=== PATIENT | female | born 1985 | race Caucasian/White ===

== ENCOUNTER 2023-08-16 17:06 | Emergency (ER) | payer MEDICAID, SELFPAY ==
[2023-08-16 17:15] VITALS: BP 127/88; PULSE 73; RESP 18; TEMP 36.9; O2SAT 96; BMI 25.4
--- NOTE | 2023-08-16 17:18 | ED.GENADULT ---
HPI - General Adult General Chief complaint: General Medical Stated complaint: missed methadone dose today Time Seen by Provider: 08/16/23 20:26 Source: patient Mode of arrival: ambulatory Limitations: no limitations History of Present Illness ED Provider: Dr. Khanh Martinez HPI narrative: 37-year-old female with a history of heroin use disorder who is on methadone who presents emergency department for evaluation of withdrawal symptoms. Patient states she does get methadone 65 mg daily but got to her clinic too late today to receive the methadone dose. She states she is currently withdrawing. She states that she is having muscle pain, feeling very anxious, and is unable to sleep. Patient denied nausea, vomiting or diarrhea. Patient states that she was using injection heroin but can not recall when she last used. She denied fever, chills, chest pain or shortness of breath. She states she has currently in the [facility] substance use treatment center. She states that someone from the center dropped her off in the emergency department today to get treatment. Related Data Allergies Allergy/AdvReac Type Severity Reaction Status Date / Time No Known Allergies Allergy Verified 08/16/23 17:17 Review of Systems Review of Systems: Yes all other systems are reviewed and are negative [facility] Social History Social History Unable to assess alcohol history related to: Unknown Smoked in Last 30 Days: No Use of substances other than those prescribed or required for medical reasons: Unknown Advance Directives: No Advance Directives Information Provided: No Do you have a plan to hurt others: No Plan Physical Exam ED Vital Signs: Vital Signs - 24 hr 08/16/23 17:15 08/16/23 21:00 Temperature 98.4 F 98.1 F Pulse Rate 73 70 Respiratory Rate 18 16 Blood Pressure 127/88 134/96 H Pulse Oximetry 96 98 Oxygen Delivery Method Room Air Room Air BMI result Body Mass Index 25.4 Vital signs were normal Exam: General: Awake, alert, tearful, appears anxious Head: Normocephalic, atraumatic EENT: PERRL, Lids normal, sclera normal, conjunctiva normal, nose normal , ears normal, throat without erythema or exudates Neck: Supple, no adenopathy Lung: breath sounds symmetric, no wheezing, rales or rhonchi Chest: symmetric movement, nontender Heart: regular rate and rhythm, normal S1, S2 no murmurs or rubs Abdomen: soft, non-tender, nondistended, normal bowel sounds Back: no vertebral tenderness, no CVAT Extremities: no deformities, moves all extremities symmetrically Neuro: Awake, alert, oriented, normal speech, cranial nerves intact, moves all extremities symmetrically Psych: Pleasant, cooperative Course Course Course Narrative: This is a Rapid Medical Examination (RME) performed by Helena Xiao PA-C in triage. Full HPI, ROS, assessment and treatment plan per primary provider in the Main ED. 37 yo female here requesting methadone dose. She is typically dosed at [facility] in [place]. Her typical dose is 65 mg with last dose being yesterday. patient visibly anxious and restless in triage. Plan: dose confirmation and administration Medications Administered Discontinued Medications Generic Name Dose Route Start Last Admin Trade Name Nydia PRN Reason Stop Dose Admin Clonidine HCl 0.1 mg 08/16/23 20:34 08/16/23 20:57 Clonidine Hcl 0.1 Mg Tablet PO 08/16/23 20:35 0.1 mg ONCE ONE Administration Protocol Hydroxyzine HCl 25 mg 08/16/23 20:34 08/16/23 20:57 Hydroxyzine Hcl 25 Mg Tablet PO 08/16/23 20:35 25 mg ONCE ONE Administration Methadone HCl 40 mg 08/16/23 20:34 08/16/23 20:57 Methadone Hcl 20 Mg/2 Ml Oral.Conc PO 08/16/23 20:35 40 mg ONCE ONE Administration Medical Decision Making Medical Decision Making [facility] Narrative: 37-year-old female with history of heroin use disorder currently in a methadone program and at a substance use treatment program who missed her dose of methadone today. Patient feels like she is withdrawing from opiates. Patient states that she takes methadone 65 mg daily but we were unable to confirm this dose. Vital signs were normal. Physical examination was unremarkable Differential diagnosis: ?Includes but is not limited to opiate withdrawal, anxiety Course: 20:42 The patient's has a history of opiate use disorder and is in a methadone program but states she missed her methadone dose today. Patient appears to be anxious and was tearful but otherwise exam was unremarkable. We are unable to confirm her dose however I am concerned that she may be with drawing from opiates and is a high-risk for using opiates if we do not treat her withdrawal. Patient was given methadone 40 mg orally, clonidine 0.1 mg orally and hydroxyzine 25 mg orally. Patient was discharged and advised to follow-up with her methadone clinic tomorrow. Discharge Plan Discharge Clinical Impression: Medical home Patient Disposition: Home, Self-Care Interventions: ED Discharge Assessment Last Done: 08/16/23 21:00 Discharge Date/Time: 08/16/23 21:00 Print Language: Croatian
--- NOTE | 2023-08-16 17:27 | PC.NURSE ---
attempted to call [facility] to confirm methadone dose, state that they do not have record of her getting dosed at that facility.
[2023-08-16] MEDS: hydrOXYzine HCL 25 MG TABLET PO (20:57)
[2023-08-16] MEDS: methADONE HCl 20 MG/2 ML ORAL.CONC 40 MG PO (20:57)
[2023-08-16] MEDS: cloNIDine HCL 0.1 MG TABLET PO (20:57)
[2023-08-16 21:00] VITALS: BP 134/96; PULSE 70; RESP 16; TEMP 36.7; O2SAT 98
== END 2023-08-16 21:00 | disposition home or self-care (01) ==
PROVIDERS: Emergency Provider Emergency Medicine Emergency Medical Services
DX: F11.20 Opioid dependence, uncomplicated (principal); F41.9 Anxiety disorder, unspecified
CPT/HCPCS: 99283; 99284

== ENCOUNTER 2024-02-14 16:57 | Inpatient (IN) | payer OTHER, SELFPAY ==
[2024-02-14 17:21] VITALS: BP 121/78; PULSE 68; RESP 18; TEMP 36.8; O2SAT 94
[2024-02-14 17:32] VITALS: BMI 17.6
--- NOTE | 2024-02-14 17:53 | PC.NURSE ---
Bronwyn declined to sign releases of information at this time
[2024-02-14 18:27] LABS: Alanine Aminotransferase 14 U/L (0-31); Albumin Level 4.1 g/dL (3.5-5.0); Anion Gap 12 (12-20); Aspartate Amino Transferase 26 U/L (5-31); Blood Urea Nitrogen 13 mg/dL (9-16); Calcium 9.1 mg/dL (8.4-10.2); Carbon Dioxide 22 mmol/L (22-29); Chloride 111 mmol/L (96-108); Creatinine Clr Calc Pharmacy 69.9; Estimated Glomerular Filt Rate > 60; Glucose Random 84 mg/dL (60-115); Potassium 4.2 mmol/L (3.3-5.1); Sodium 141 mmol/L (135-145); Total Protein 7.2 g/dL (6.5-8.0)
[2024-02-14 18:35] LABS: Alkaline Phosphatase 52 U/L (39-117); Bilirubin Total 0.6 mg/dL (0.0-1.0)
--- NOTE | 2024-02-14 18:41 | PC.ADMIT ---
Bronwyn was admitted to from [facility] via ambulance on a 12B at 1718 for treatment of unspecified schizophrenia. Much of admission done from medical record due to unwillingness to participate in admission. Prior to admission, she was living at [facility] in which EMS was called due to her experiencing AH. Upon arrival to , she denies SI/HI/AVH but is pressured speech and self dialoguing when not speaking to RN. She presents as disheveled and anxious. She denies smoking, drinking or use of substances. Tox screen not done at prior facility, Nikhil Trevino MD aware. EKG provided by prior facility, no significant findings. Skin check completed and unremarkable. She is A&O x4. She reports not eating in a few days and is requesting Ensures stating she has recently lost weight due to depression. She denies complaints or issues at this time. Placed on 15 minute checks for safety.
--- NOTE | 2024-02-14 20:27 | P.CONHOSP_ITS ---
History of Present Illness Data of Consult Service Date: 02/14/24 Primary Care Provider: Unknown Physician [facility] Reason for consult: Admission H&P Pt is a 38-year-old female with a PMH significant for hepatitis C, polysubstance use disorder with IVDU, anxiety, and depression who was admitted to [facility] with medical consult for admission H&P. Pt appears restless and anxious during interview and exam, as well as somatically preoccupied. Pt reports was partially treated with hepatitis-C a few years ago though did not complete full treatment. Has history of IVDU with last injection a few months ago. Pt worries that she might have HIV as well as possible ear infections. Pt denies any acute aural complaints, though notes both her son and her aunt have tubes in their ears and she wonders if she might as well need them. States it sometimes feels like her ears are draining, though unclear if there is any actual drainage. Denies current ear pain or loss in hearing. Pt also concerned about potential meningitis. States has a friend who had a spine infection and she reports has injected in her neck in the past, though for many months. No fever, neck pain, or known confusion. Denies chest pain/pressure, palpitations. No shortness a breath or difficulty breathing. Denies cough. Review of Systems 2 Review of Systems: Negative except for that which is stated in the [facility] Medical History (Updated 02/14/24 @ 20:36 by MEAGAN Marin) IVDU (intravenous drug user) Polysubstance use disorder Hepatitis C Social History Household Members: None Housing: Apartment Housing Other:: Sober Living Do you presently have visiting nurse or other home services: No Unable to assess alcohol history related to: Unknown Patient Tobacco Use Status: Never used Tobacco Smoked in Last 30 Days: No e-Cigarette/Vaping Use: Never Used Patient Interested in Nicotine Replacement: No Patient Given Instructions on How to Stop Smoking: No Second Hand Smoke Exposure: No Use of substances other than those prescribed or required for medical reasons: Refusing to respond Substance Use Type: Unknown Last Used Substance: Unknown Any prior treatment program specific to substance use: Yes Advance Directives: No Advance Directives Information Provided: No Recently lost weight without trying: Yes How much weight loss: 2-13 pounds Eating poorly because of decreased appetite: Yes Nutrition screen score: 4 Nutrition Risks: No Nutritional Risk Patient : No : No Poor oral hygiene: No Meds Allergies Allergy/AdvReac Type Severity Reaction Status Date / Time No Known Allergies Allergy Verified 08/16/23 17:17 Active Medications: Current Medications Acetaminophen (Acetaminophen 325 Mg Tablet) 650 mg PO Q6H PRN PRN Reason: Headache/Pain Mild Scale (1-3) Al Hydroxide/Mg Hydroxide (Magnesium Hydrox/Alum Hydrox 30 Ml Oral.Susp) 30 ml PO Q6H PRN PRN Reason: Heartburn/Nausea Aripiprazole (Aripiprazole 2 Mg Tablet) 2 mg PO DAILY JHONY Hydroxyzine HCl (Hydroxyzine Hcl 25 Mg Tablet) 25 mg PO Q6H PRN PRN Reason: Anxiety Hydroxyzine HCl (Hydroxyzine Hcl 50 Mg Tablet) 50 mg PO Q6H PRN PRN Reason: Anxiety Lorazepam (Lorazepam 1 Mg Tablet) 1 mg PO Q8H PRN PRN Reason: Anxiety Magnesium Hydroxide (Milk Of Magnesia 30 Ml Oral.Susp) 30 ml PO DAILY PRN PRN Reason: Constipation Melatonin (Melatonin 3 Mg Tablet) 6 mg PO BEDTIME JHONY Methadone HCl (Methadone Hcl 20 Mg/2 Ml Oral.Conc) 70 mg PO DAILY JHONY Mirtazapine (Mirtazapine 30 Mg Tablet) 30 mg PO BEDTIME JHONY Non-Formulary Medication (Lumateperone [Caplyta]) 42 mg PO DAILY JHONY Oxcarbazepine (Oxcarbazepine 300 Mg Tablet) 300 mg PO BID JHONY Quetiapine Fumarate (Quetiapine Fumarate 50 Mg Tablet) 50 mg PO Q4H PRN PRN Reason: Anxiety Sertraline HCl (Sertraline Hcl 50 Mg Tablet) 50 mg PO DAILY JHONY Trazodone HCl (Trazodone Hcl 50 Mg Tablet) 50 mg PO BEDTIME MRX1 PRN PRN Reason: Insomnia Home Medications ?Medication ?Instructions ?Recorded ?Confirmed ?Last Taken ?Type aripiprazole 2 mg tablet 2 mg PO DAILY 02/14/24 02/14/24 Unknown History bupropion HCl 150 mg 24 hr tablet, 150 mg PO DAILY 02/14/24 02/14/24 Unknown History extended release (Wellbutrin XL) hydroxyzine HCl 50 mg tablet 50 mg PO Q6H PRN Anxiety 02/14/24 02/14/24 Unknown History lorazepam 1 mg tablet (Ativan) 1 mg PO Q8H PRN Anxiety 02/14/24 02/14/24 Unknown History lumateperone 42 mg capsule 42 mg PO DAILY 02/14/24 02/14/24 Unknown History (Caplyta) melatonin 5 mg tablet 6 mg PO BEDTIME 02/14/24 02/14/24 Unknown History methadone 70 mg PO DAILY 02/14/24 02/14/24 02/14/24 13:01 History mirtazapine 30 mg tablet 30 mg PO BEDTIME 02/14/24 02/14/24 Unknown History oxcarbazepine 300 mg tablet 300 mg PO BID 02/14/24 02/14/24 Unknown History quetiapine 50 mg tablet 50 mg PO Q4H PRN Anxiety 02/14/24 02/14/24 Unknown History sertraline 50 mg tablet 50 mg PO DAILY 02/14/24 02/14/24 Unknown History trazodone 50 mg tablet 50 mg PO BEDTIME PRN Insomnia 02/14/24 02/14/24 Unknown History Physical Exam 2 Vital Signs and Narrative: Vital Signs: Last Vital Signs Temp 98.2 F 02/14/24 17:21 Pulse 68 02/14/24 17:21 Resp 18 02/14/24 17:21 BP 121/78 02/14/24 17:21 Pulse Ox 94 02/14/24 17:21 O2 Del Method Room Air 02/14/24 17:21 BMI result Body Mass Index 17.6 General: AOx3, no acute distress ENT: External ear canals non erythematous and without discharge discharge, with scant amount of cerumen bilaterally. TMs bilaterally pearly goodrich, with good light reflex and landmarks visible Resp: CTA bilaterally CVS: S1, S2, RRR GI: +BS, NT, no distention Skin: Warm, dry Neuro: Cranial nerves II-XII grossly intact bilaterally. Motor grossly intact bilaterally. No meningeal signs noted Extremities: No edema Psych: Restless, anxious Results Labs 02/14/24 17:49 Labs: Laboratory Results - last 24 hr 02/14/24 17:49 Anion Gap 12 Estim Creat Clear Calc 69.9 Estimated GFR > 60 Random Glucose 84 Calcium 9.1 Total Bilirubin 0.6 AST 26 ALT 14 Alkaline Phosphatase 52 Total Protein 7.2 Albumin 4.1 Assessment and Plan (1) Medical clearance for psychiatric admission: Status: Acute Plan Pt is a 38-year-old female with a PMH significant for hepatitis C, polysubstance use disorder with IVDU, anxiety, and depression who was admitted to [facility] with medical consult for admission H&P. Mood disorder Plan as per psychiatry Concern for bilateral ear infection Currently no complaints or symptoms, though reports sometimes has ear drainage and family hx of Eustachian tube dysfunction requiring surgical intervention No sign of active otitis externa or media bilaterally No indication for treatment or further workup at this time Question of HIV Pt worried she has contracted HIV Last tested over a year ago Will check HIV status Hepatitis C Reports partially treated a few years ago Check viral load Thank you for allowing us to participate in the care of this patient. Signing off at this time. Please re-consult if any acute complaints or issues arise.
[2024-02-14] MEDS: Melatonin 3 MG TABLET 6 MG PO (20:39)
[2024-02-14] MEDS: OXcarbazepine 300 MG TABLET PO (20:39)
[2024-02-14] MEDS: Mirtazapine 30 MG TABLET PO (20:39)
--- NOTE | 2024-02-14 23:38 | PC.NURSE ---
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 Ms Banuelos's phone number is [phone]. There are no releases signed by this patient upon her admission, so this check writer salesperson did not return the call. This message will be passed on via the report packet to day shift.
[2024-02-15 07:59] VITALS: BP 114/73; PULSE 73; RESP 16; TEMP 36.8; O2SAT 100
[2024-02-15 08:24] LABS: Cholesterol 179 mg/dL (<200); HDL Cholesterol 62 mg/dL (>40); LDL Cholesterol Calculated 98 mg/dL (<100); Triglycerides 96 mg/dL (<150)
--- NOTE | 2024-02-15 08:33 | P.HPPS_ITS ---
[facility] Date of Service: 02/15/24 Chief Complaint: Psychosis Sources of Information: patient interviewed and chart reviewed HPI Subjective Notes: Conditional Voluntary Narrative: As per admission RN note 02/14/24: admitted to from [facility] via ambulance on a 12B at 1718 for treatment of unspecified schizophrenia. Much of admission done from medical record due to unwillingness to participate in admission. Prior to admission, she was living at [facility] in which EMS was called due to her experiencing AH. Upon arrival to , she denies SI/HI/AVH but is pressured speech and self dialoguing when not speaking to RN. She presents as disheveled and anxious. She denies smoking, drinking or use of substances. Tox screen not done at prior facility, Nikhil Trevino MD aware. EKG provided by prior facility, no significant findings. Skin check completed and unremarkable. She is A&O x4. She reports not eating in a few days and is requesting Ensures stating she has recently lost weight due to depression. She denies complaints or issues at this time. Placed on 15 minute checks for safety Today: patient does present as disorganized in thought form and tangential and guarded. Initially appeared to endorse auditory hallucinations, but later recanted this. States that she needs medications to help her feel more calm. Making statements that she might have an ear infection because her son had tubes put in his ear as did her aunt and she also had a fractured nose in the past. Reported somebody at her program called 911 and she is frustrated regarding this and wants discharge. Educated on Section 12 the Nguyen warning. Has been at the end our program for 1 month. Prior to that was staying at the [facility]. Reports having an apartment in [facility]. Stressors include being laid off from her job at [employer] 1 year ago. Is a poor historian regarding psychiatric treatment and current medication regimen. Reports not having a psychiatrist within the last year at least. Current regimen from the [facility] program. Cannot remember past psychiatric medication trials. Regarding substance use, reports methadone 70 mg has been helpful and has not used heroin in over 1 year. Has not drank in over a couple of years. Reports feeling safe here. Would like to return to her program at [facility] as that is not possible that her apartment in [facility]. Past Psychiatric History: Very poor historian. Does not have medications ordered prescriber in a number of years. Reports current regiment is through provider at [facility]. Last inpatient episode was a few years ago which was in the context of cutting self. Has a history of overdosing and cutting self, but last time was a few years ago. Reports diagnosis of bipolar disorder and describes episodes of at least hypomania. Unclear correlation with substance use. Currently on methadone maintenance 70 mg and finds this very helpful. Medical Evaluation Reviewed: Hospitalist Rimma Pending [facility] Medical History (Updated 02/15/24 @ 14:33 by Nikhil Trevino MD) IVDU (intravenous drug user) Polysubstance use disorder Hepatitis C Social History: reports having an apartment in [facility]. currently at [facility] and our program for the last 1 month. Laid off from job at [employer] 1 year ago. 5-year-old son currently with father and they are . 7-year-old daughter with aunt in [place] for the last couple of years. Denied any active legal issues. Substance History: Opioid and alcohol dependence. On methadone maintenance 70 mg and has not used any heroin in over 1 year and alcohol in a couple of years. Diagnostics Vital Signs (24Hr): Vital Signs - 24 hr 02/14/24 17:21 02/15/24 07:59 Temperature 98.2 F 98.2 F Pulse Rate 68 73 Respiratory Rate 18 16 Blood Pressure 121/78 114/73 Pulse Oximetry 94 100 Oxygen Delivery Method Room Air Room Air BMI result Body Mass Index 17.6 Labs 02/14/24 17:49 Labs: Laboratory Results - last 48 hr 02/14/24 02/15/24 17:49 07:45 Sodium 141 Potassium 4.2 Chloride 111 H Carbon Dioxide 22 Anion Gap 12 BUN 13 Creatinine 0.71 Estim Creat Clear Calc 69.9 Estimated GFR > 60 Random Glucose 84 Calcium 9.1 Total Bilirubin 0.6 AST 26 ALT 14 Alkaline Phosphatase 52 Total Protein 7.2 Albumin 4.1 Triglycerides 96 Cholesterol 179 LDL Cholesterol, Calc 98 HDL Cholesterol 62 Meds/Allergies Meds Home Medications ?Medication ?Instructions ?Recorded ?Confirmed ?Type aripiprazole 2 mg tablet 2 mg PO DAILY 02/14/24 02/14/24 History bupropion HCl 150 mg 24 hr tablet, 150 mg PO DAILY 02/14/24 02/14/24 History extended release (Wellbutrin XL) hydroxyzine HCl 50 mg tablet 50 mg PO Q6H PRN Anxiety 02/14/24 02/14/24 History lorazepam 1 mg tablet (Ativan) 1 mg PO Q8H PRN Anxiety 02/14/24 02/14/24 History lumateperone 42 mg capsule 42 mg PO DAILY 02/14/24 02/14/24 History (Caplyta) melatonin 5 mg tablet 6 mg PO BEDTIME 02/14/24 02/14/24 History methadone 70 mg PO DAILY 02/14/24 02/14/24 History mirtazapine 30 mg tablet 30 mg PO BEDTIME 02/14/24 02/14/24 History oxcarbazepine 300 mg tablet 300 mg PO BID 02/14/24 02/14/24 History quetiapine 50 mg tablet 50 mg PO Q4H PRN Anxiety 02/14/24 02/14/24 History sertraline 50 mg tablet 50 mg PO DAILY 02/14/24 02/14/24 History trazodone 50 mg tablet 50 mg PO BEDTIME PRN Insomnia 02/14/24 02/14/24 History Allergies Allergies Allergy/AdvReac Type Severity Reaction Status Date / Time No Known Allergies Allergy Verified 08/16/23 17:17 Assessment & Plan Assessment & Plan (1) Bipolar disorder: Status: Acute Code(s): F31.9 - Bipolar disorder, unspecified (2) Polysubstance use disorder: Status: Acute Code(s): F19.90 - Other psychoactive substance use, unspecified, uncomplicated Plan 38-year-old female with history of bipolar disorder, currently residing at [facility] for the last 1 month, direct admission from [facility] in the context program staff concern around auditory hallucinations. Patient does present with thought disorder and may be internally preoccupied. Is guarded. Very poor historian around past treatment and current regimen, which is based off medication reconciliation from [facility]. Overall currently unable to care for self. Admitted on a Section 12 B. Overall will not make any med changes, see how patient settles into the milieu and make any adjustments if needed. Otherwise will need to liaise with community-based program. Patient educated on: medication risk/benefits and therapeutic strategies Informed Consent: understands Reason for continued inpatient stay Substantial Risk for: inability to function Statement Statement: I have reviewed the history and physical and performed a pertinent examination on my patient. No changes have occurred unless specified. If the History and Physical was not performed prior to admission, the Hospitalist's service will be consulted for completing the admission physical. Time Spent With Patient Time: Total time managing care of this patient today ____ minutes.
[2024-02-15] MEDS: Sertraline HCL 50 MG TABLET PO (09:01)
[2024-02-15] MEDS: OXcarbazepine 300 MG TABLET PO ×2 (09:01→20:02)
[2024-02-15] MEDS: ARIPiprazole 2 MG TABLET PO (09:01)
[2024-02-15] MEDS: methADONE HCl 20 MG/2 ML ORAL.CONC 70 MG PO (09:08)
[2024-02-15 15:07] LABS: Amphetamine Screen Urine Not Detected (Not Detect); Barbiturates, Urine Not Detected (Not Detect); Benzodiazepines Screen Urine Not Detected (Not Detect); Buprenorphine Scr Not Detected (Not Detect); Cannabinoid Screen Urine Not Detected (Not Detect); Cocaine Screen Urine Not Detected (Not Detect); Fentanyl, urine Not Detected (Not Detect); Methadone Screen, Urine Positive (Not Detect); Opiate Screen Urine Not Detected (Not Detect); Oxycodone Screen Urine Not Detected (Not Detect); Phencyclidine Screen Urine Not Detected (Not Detect)
[2024-02-15] MEDS: LORazepam 1 MG TABLET PO (15:45)
[2024-02-15] MEDS: hydrOXYzine HCL 50 MG TABLET PO (15:45)
[2024-02-15 20:00] VITALS: BP 100/64; PULSE 98; RESP 16; TEMP 37.6; O2SAT 97
[2024-02-15] MEDS: traZODone HCL 50 MG TABLET PO (20:03)
[2024-02-15] MEDS: QUEtiapine Fumarate 50 MG TABLET PO (20:03)
[2024-02-15] MEDS: Mirtazapine 30 MG TABLET PO (20:03)
[2024-02-15] MEDS: Melatonin 3 MG TABLET 6 MG PO (20:03)
[2024-02-15] MEDS: Acetaminophen 325 MG TABLET 650 MG PO (20:03)
[2024-02-16] MEDS: LORazepam 1 MG TABLET PO ×2 (00:12→20:59)
[2024-02-16] MEDS: hydrOXYzine HCL 25 MG TABLET PO (00:12)
[2024-02-16 07:43] LABS: HBS Num1 72.56 mIU/mL (0-7.99); HBc Num1 0.16 S/CO (0.00-0.79); HBsAGNum1 0.33 S/CO (0.00-0.99); HIV AB/AG Nonreactive (Nonreactive); HIV Num 1 0.07 S/CO (0.00-0.99); Hepatitis A Antibody IgM 0.21 Index (0-0.79); Hepatitis B Core Antibody Nonreactive (Nonreactive); Hepatitis B Surface Antigen Negative (Negative); ~HepC Num1 16.45 S/CO (0.00-0.79); ~Hepatitis A Antibody IgM Nonreactive (Nonreactive); ~Hepatitis B Surface Antibody REACTIVE (Nonreactive); ~Hepatitis C Antibody Reactive (Nonreactive)
[2024-02-16 07:49] VITALS: BP 106/59; PULSE 75; TEMP 36.8; O2SAT 95
[2024-02-16] MEDS: methADONE HCl 20 MG/2 ML ORAL.CONC 70 MG PO (08:11)
[2024-02-16] MEDS: OXcarbazepine 300 MG TABLET PO ×2 (09:48→20:52)
[2024-02-16] MEDS: ARIPiprazole 2 MG TABLET PO (09:48)
[2024-02-16] MEDS: Sertraline HCL 50 MG TABLET PO (09:48)
--- NOTE | 2024-02-16 11:29 | MHC.CLN ---
NUTRITION CONSULT PATIENT WITH BMI=17.6, UNDERWEIGHT. REVIEW OF EMR WITH PATIENT REPORTING RECENT POOR INTAKE, WEIGHT LOSS AND WOULD LIKE ENSURE SUPPLEMENT. ADDING ENSURE TID TO PROMOTE NUTRITIONAL INTAKE. SUPPLEMENT PROVIDES 1050 KCALS, 60 G PROTEIN.
--- NOTE | 2024-02-16 15:28 | P.PNPSI_ITS ---
Subjective Subjective Date of Service: 02/16/24 Reason For Visit: Psychosis Subjective Notes: Section 12B Interim History: Keeping to self. guarded. patient reports feeling okay today; pt stated, everything stressed me out so I can to the hospital. I want to go back to [facility] . per nursing, slept 9 hours last night. denies SI/HI/VH/AH. 12b up on 02/18/24. Medication Compliance: Yes Side effects from medications: No Attending Groups: No Review of Systems Constitutional: Reports as per HPI Eyes: Reports as per HPI Reports as per HPI Cardiovascular: Reports as per HPI Respiratory: Reports as per HPI Gastrointestinal: Reports as per HPI Genitourinary: Reports as per HPI Musculoskeletal: Reports as per HPI Skin/Breast: Reports as per HPI Reports as per HPI Psychiatric: Reports as per HPI Endocrine: Reports as per HPI Hematologic/Lymphatic: Reports as per HPI Allergic/Immunologic: Reports as per HPI Mental Status Exam Mental Status Exam Narrative: Pt is alert and oriented; behavior is guarded; dressed in casual attire; mood is described as okay ; eye contact appropriate; Speech is normal rate, volume and not pressured; thought process is organized and goal directed; Thought content is on tx; denies SI/HI/VH/AH. Diagnostics Vital Signs (24Hr): Vital Signs - 24 hr 02/15/24 20:00 02/16/24 07:49 Temperature 99.7 F 98.3 F Pulse Rate 98 75 Respiratory Rate 16 Blood Pressure 100/64 106/59 L Pulse Oximetry 97 95 Oxygen Delivery Method Room Air Room Air BMI result Body Mass Index 17.6 Labs 02/14/24 17:49 Labs: Laboratory Results - last 48 hr 02/14/24 02/15/24 02/15/24 17:49 07:45 14:20 Sodium 141 Potassium 4.2 Chloride 111 H Carbon Dioxide 22 Anion Gap 12 BUN 13 Creatinine 0.71 Estim Creat Clear Calc 69.9 Estimated GFR > 60 Random Glucose 84 Calcium 9.1 Total Bilirubin 0.6 AST 26 ALT 14 Alkaline Phosphatase 52 Total Protein 7.2 Albumin 4.1 Triglycerides 96 Cholesterol 179 LDL Cholesterol, Calc 98 HDL Cholesterol 62 Urine Opiates Screen Not Detected Ur Buprenorphine Scrn Not Detected Ur Oxycodone Screen Not Detected Urine Methadone Screen Positive H Urine Fentanyl Screen Not Detected Ur Barbiturates Screen Not Detected Ur Phencyclidine Scrn Not Detected Ur Amphetamines Screen Not Detected U Benzodiazepines Scrn Not Detected Urine Cocaine Screen Not Detected U Marijuana (THC) Screen Not Detected Hepatitis A IgM Ab Hep Bs Antigen Hep Bs Antibody Hep B Core Total Ab Hepatitis C Ab (EIA) HIV 1&2 Ab/P24 Ag 4thGn 02/15/24 14:21 Sodium Potassium Chloride Carbon Dioxide Anion Gap BUN Creatinine Estim Creat Clear Calc Estimated GFR Random Glucose Calcium Total Bilirubin AST ALT Alkaline Phosphatase Total Protein Albumin Triglycerides Cholesterol LDL Cholesterol, Calc HDL Cholesterol Urine Opiates Screen Ur Buprenorphine Scrn Ur Oxycodone Screen Urine Methadone Screen Urine Fentanyl Screen Ur Barbiturates Screen Ur Phencyclidine Scrn Ur Amphetamines Screen U Benzodiazepines Scrn Urine Cocaine Screen U Marijuana (THC) Screen Hepatitis A IgM Ab Nonreactive Hep Bs Antigen Negative Hep Bs Antibody REACTIVE Hep B Core Total Ab Nonreactive Hepatitis C Ab (EIA) Reactive H HIV 1&2 Ab/P24 Ag 4thGn Nonreactive Medications Medications Current Medications Acetaminophen (Acetaminophen 325 Mg Tablet) 650 mg PO Q6H PRN PRN Reason: Headache/Pain Mild Scale (1-3) Last Admin: 02/15/24 20:03 Dose: 650 mg Al Hydroxide/Mg Hydroxide (Magnesium Hydrox/Alum Hydrox 30 Ml Oral.Susp) 30 ml PO Q6H PRN PRN Reason: Heartburn/Nausea Aripiprazole (Aripiprazole 2 Mg Tablet) 2 mg PO DAILY [facility] Last Admin: 02/16/24 09:48 Dose: 2 mg Hydroxyzine HCl (Hydroxyzine Hcl 25 Mg Tablet) 25 mg PO Q6H PRN PRN Reason: Anxiety Last Admin: 02/16/24 00:12 Dose: 25 mg Hydroxyzine HCl (Hydroxyzine Hcl 50 Mg Tablet) 50 mg PO Q6H PRN PRN Reason: Anxiety Last Admin: 02/15/24 15:45 Dose: 50 mg Lorazepam (Lorazepam 1 Mg Tablet) 1 mg PO Q8H PRN PRN Reason: Anxiety Last Admin: 02/16/24 00:12 Dose: 1 mg Magnesium Hydroxide (Milk Of Magnesia 30 Ml Oral.Susp) 30 ml PO DAILY PRN PRN Reason: Constipation Melatonin (Melatonin 3 Mg Tablet) 6 mg PO BEDTIME [facility] Last Admin: 02/15/24 20:03 Dose: 6 mg Methadone HCl (Methadone Hcl 20 Mg/2 Ml Oral.Conc) 70 mg PO DAILY [facility] Last Admin: 02/16/24 08:11 Dose: 70 mg Mirtazapine (Mirtazapine 30 Mg Tablet) 30 mg PO BEDTIME [facility] Last Admin: 02/15/24 20:03 Dose: 30 mg Non-Formulary Medication (Lumateperone [Caplyta]) 42 mg PO DAILY [facility] Oxcarbazepine (Oxcarbazepine 300 Mg Tablet) 300 mg PO BID [facility] Last Admin: 02/16/24 09:48 Dose: 300 mg Quetiapine Fumarate (Quetiapine Fumarate 50 Mg Tablet) 50 mg PO Q4H PRN PRN Reason: Anxiety Last Admin: 02/15/24 20:03 Dose: 50 mg Sertraline HCl (Sertraline Hcl 50 Mg Tablet) 50 mg PO DAILY [facility] Last Admin: 02/16/24 09:48 Dose: 50 mg Trazodone HCl (Trazodone Hcl 50 Mg Tablet) 50 mg PO BEDTIME [facility] PRN PRN Reason: Insomnia Last Admin: 02/15/24 20:03 Dose: 50 mg Allergies Allergies Allergy/AdvReac Type Severity Reaction Status Date / Time No Known Allergies Allergy Verified 08/16/23 17:17 Assessment & Plan Assessment & Plan (1) Bipolar disorder: Status: Acute Code(s): F31.9 - Bipolar disorder, unspecified (2) Polysubstance use disorder: Status: Acute Code(s): F19.90 - Other psychoactive substance use, unspecified, uncomplicated Plan 38-year-old female with history of bipolar disorder, currently residing at [facility] for the last 1 month, direct admission from [facility] in the context program staff concern around auditory hallucinations. Patient does present with thought disorder and may be internally preoccupied. Is guarded. Very poor historian around past treatment and current regimen, which is based off medication reconciliation from [facility]. Overall currently unable to care for self. Admitted on a Section 12 B. Overall will not make any med changes, see how patient settles into the milieu and make any adjustments if needed. Otherwise will need to liaise with community-based program. 02/15: Keeping to self. guarded. patient reports feeling okay today; pt stated, everything stressed me out so I can to the hospital. I want to go back to [facility] . per nursing, slept 9 hours last night. denies SI/HI/VH/AH. 12b up on 02/18/24. Continue current tx plan. Patient educated on: diagnosis and medication risk/benefits Reason for continued inpatient stay Substantial Risk for: med/psych decompensation Time Spent With Patient Time: Total time managing care of this patient today _20___ minutes.
[2024-02-16 20:00] VITALS: BP 111/71; PULSE 80; TEMP 37.1; O2SAT 95
[2024-02-16] MEDS: Mirtazapine 30 MG TABLET PO (20:52)
[2024-02-16] MEDS: Melatonin 3 MG TABLET 6 MG PO (20:52)
[2024-02-16] MEDS: Acetaminophen 325 MG TABLET 650 MG PO (21:00)
[2024-02-17 08:00] VITALS: BP 116/73; PULSE 69; RESP 18; TEMP 36.6; O2SAT 100
[2024-02-17] MEDS: methADONE HCl 20 MG/2 ML ORAL.CONC 70 MG PO (08:19)
[2024-02-17] MEDS: OXcarbazepine 300 MG TABLET PO ×2 (08:55→20:46)
[2024-02-17] MEDS: ARIPiprazole 2 MG TABLET PO (08:55)
[2024-02-17] MEDS: Sertraline HCL 50 MG TABLET PO (08:55)
[2024-02-17] MEDS: LORazepam 1 MG TABLET PO ×2 (10:19→20:46)
--- NOTE | 2024-02-17 11:19 | P.PNPSI_ITS ---
Subjective Subjective Date of Service: 02/17/24 Reason For Visit: Psychosis Subjective Notes: 3 Day Interim History: Signed CV then 3 day notice. 3 day up on 02/19/23. guarded. patient reports feeling anxious today; focused on returning to [facility]. Patient reports she plans on contacting them today to see if they have a bed for her. per nursing, slept 8 hours last night. denies SI/HI/VH/AH. Encouraged to attend groups. Medication Compliance: Yes Side effects from medications: No Attending Groups: No Review of Systems Constitutional: Reports as per HPI Eyes: Reports as per HPI Reports as per HPI Cardiovascular: Reports as per HPI Respiratory: Reports as per HPI Gastrointestinal: Reports as per HPI Musculoskeletal: Reports as per HPI Skin/Breast: Reports as per HPI Reports as per HPI Psychiatric: Reports as per HPI Endocrine: Reports as per HPI Hematologic/Lymphatic: Reports as per HPI Allergic/Immunologic: Reports as per HPI Mental Status Exam Mental Status Exam Narrative: Pt is alert and oriented; behavior is guarded; dressed in casual attire; mood is described as anxious ; eye contact appropriate; Speech is normal rate, volume and not pressured; thought process is organized and goal directed; Thought content is on returning to [facility]; denies SI/HI/VH/AH. Diagnostics Vital Signs (24Hr): Vital Signs - 24 hr 02/16/24 20:00 02/17/24 08:00 Temperature 98.8 F 97.9 F Pulse Rate 80 69 Respiratory Rate 18 Blood Pressure 111/71 116/73 Pulse Oximetry 95 100 Oxygen Delivery Method Room Air Room Air BMI result Body Mass Index 17.6 Labs 02/14/24 17:49 Labs: Laboratory Results - last 48 hr 02/15/24 02/15/24 14:20 14:21 Urine Opiates Screen Not Detected Ur Buprenorphine Scrn Not Detected Ur Oxycodone Screen Not Detected Urine Methadone Screen Positive H Urine Fentanyl Screen Not Detected Ur Barbiturates Screen Not Detected Ur Phencyclidine Scrn Not Detected Ur Amphetamines Screen Not Detected U Benzodiazepines Scrn Not Detected Urine Cocaine Screen Not Detected U Marijuana (THC) Screen Not Detected Hepatitis A IgM Ab Nonreactive Hep Bs Antigen Negative Hep Bs Antibody REACTIVE Hep B Core Total Ab Nonreactive Hepatitis C Ab (EIA) Reactive H HIV 1&2 Ab/P24 Ag 4thGn Nonreactive Medications Medications Current Medications Acetaminophen (Acetaminophen 325 Mg Tablet) 650 mg PO Q6H PRN PRN Reason: Headache/Pain Mild Scale (1-3) Last Admin: 02/16/24 21:00 Dose: 650 mg Al Hydroxide/Mg Hydroxide (Magnesium Hydrox/Alum Hydrox 30 Ml Oral.Susp) 30 ml PO Q6H PRN PRN Reason: Heartburn/Nausea Aripiprazole (Aripiprazole 2 Mg Tablet) 2 mg PO DAILY [facility] Last Admin: 02/17/24 08:55 Dose: 2 mg Hydroxyzine HCl (Hydroxyzine Hcl 25 Mg Tablet) 25 mg PO Q6H PRN PRN Reason: Anxiety Last Admin: 02/16/24 00:12 Dose: 25 mg Hydroxyzine HCl (Hydroxyzine Hcl 50 Mg Tablet) 50 mg PO Q6H PRN PRN Reason: Anxiety Last Admin: 02/15/24 15:45 Dose: 50 mg Lorazepam (Lorazepam 1 Mg Tablet) 1 mg PO Q8H PRN PRN Reason: Anxiety Last Admin: 02/17/24 10:19 Dose: 1 mg Magnesium Hydroxide (Milk Of Magnesia 30 Ml Oral.Susp) 30 ml PO DAILY PRN PRN Reason: Constipation Melatonin (Melatonin 3 Mg Tablet) 6 mg PO BEDTIME [facility] Last Admin: 02/16/24 20:52 Dose: 6 mg Methadone HCl (Methadone Hcl 20 Mg/2 Ml Oral.Conc) 70 mg PO DAILY [facility] Last Admin: 02/17/24 08:19 Dose: 70 mg Mirtazapine (Mirtazapine 30 Mg Tablet) 30 mg PO BEDTIME [facility] Last Admin: 02/16/24 20:52 Dose: 30 mg Non-Formulary Medication (Lumateperone [Caplyta]) 42 mg PO DAILY [facility] Oxcarbazepine (Oxcarbazepine 300 Mg Tablet) 300 mg PO BID [facility] Last Admin: 02/17/24 08:55 Dose: 300 mg Quetiapine Fumarate (Quetiapine Fumarate 50 Mg Tablet) 50 mg PO Q4H PRN PRN Reason: Anxiety Last Admin: 02/15/24 20:03 Dose: 50 mg Sertraline HCl (Sertraline Hcl 50 Mg Tablet) 50 mg PO DAILY [facility] Last Admin: 02/17/24 08:55 Dose: 50 mg Trazodone HCl (Trazodone Hcl 50 Mg Tablet) 50 mg PO BEDTIME MRX1 PRN PRN Reason: Insomnia Last Admin: 02/15/24 20:03 Dose: 50 mg Allergies Allergies Allergy/AdvReac Type Severity Reaction Status Date / Time No Known Allergies Allergy Verified 08/16/23 17:17 Assessment & Plan Assessment & Plan (1) Bipolar disorder: Status: Acute Code(s): F31.9 - Bipolar disorder, unspecified (2) Polysubstance use disorder: Status: Acute Code(s): F19.90 - Other psychoactive substance use, unspecified, uncomplicated Plan 38-year-old female with history of bipolar disorder, currently residing at [facility] for the last 1 month, direct admission from [facility] in the context program staff concern around auditory hallucinations. Patient does present with thought disorder and may be internally preoccupied. Is guarded. Very poor historian around past treatment and current regimen, which is based off medication reconciliation from [facility]. Overall currently unable to care for self. Admitted on a Section 12 B. Overall will not make any med changes, see how patient settles into the milieu and make any adjustments if needed. Otherwise will need to liaise with community-based program. 02/15: Keeping to self. guarded. patient reports feeling okay today; pt stated, everything stressed me out so I can to the hospital. I want to go back to [facility] . per nursing, slept 9 hours last night. denies SI/HI/VH/AH. 12b up on 02/18/24. Continue current tx plan. 02/16: Signed CV then 3 day notice. 3 day up on 02/19/23. guarded. patient reports feeling anxious today; focused on returning to [facility]. Patient reports she plans on contacting them today to see if they have a bed for her. per nursing, slept 8 hours last night. denies SI/HI/VH/AH. Encouraged to attend groups. Patient educated on: diagnosis, medication risk/benefits and therapeutic strategies Reason for continued inpatient stay Substantial Risk for: med/psych decompensation Time Spent With Patient Time: Total time managing care of this patient today _20___ minutes.
[2024-02-17] MEDS: hydrOXYzine HCL 50 MG TABLET PO (14:48)
[2024-02-17 20:00] VITALS: BP 122/68; PULSE 74; RESP 18; TEMP 36.6; O2SAT 99
[2024-02-17] MEDS: Mirtazapine 30 MG TABLET PO (20:46)
[2024-02-17] MEDS: Melatonin 3 MG TABLET 6 MG PO (20:46)
[2024-02-18] MEDS: hydrOXYzine HCL 50 MG TABLET PO ×2 (06:49→12:56)
[2024-02-18 08:00] VITALS: BP 109/68; PULSE 68; RESP 16; TEMP 36.7; O2SAT 96
[2024-02-18] MEDS: methADONE HCl 20 MG/2 ML ORAL.CONC 70 MG PO (08:01)
[2024-02-18] MEDS: Sertraline HCL 50 MG TABLET PO (08:44)
[2024-02-18] MEDS: OXcarbazepine 300 MG TABLET PO ×2 (08:45→21:12)
[2024-02-18] MEDS: ARIPiprazole 2 MG TABLET PO (08:45)
--- NOTE | 2024-02-18 09:16 | HO.PSYCHPN ---
Subjective Subjective Date of Service: 02/18/24 Reason For Visit: Psychosis Subjective Notes: 3 Day Interim History: 3 day up on 02/19/23. Laying in bed most of morning. patient continues to report feeling anxious today; patient reports she plans on contacting her mother today to see if she is allowed to stay with her when discharged. Pt stated, if I can't stay with my mom then I'll either go to a jail or the street . Patient reports she has outpatient psychiatric providers that she plans on following up with. denies SI/HI/VH/AH. Encouraged to attend groups. Medication Compliance: Yes Side effects from medications: No Attending Groups: No Review of Systems Constitutional: Reports as per HPI Eyes: Reports as per HPI Reports as per HPI Cardiovascular: Reports as per HPI Respiratory: Reports as per HPI Gastrointestinal: Reports as per HPI Musculoskeletal: Reports as per HPI Skin/Breast: Reports as per HPI Reports as per HPI Psychiatric: Reports as per HPI Endocrine: Reports as per HPI Hematologic/Lymphatic: Reports as per HPI Allergic/Immunologic: Reports as per HPI Mental Status Exam Mental Status Exam Narrative: Pt is alert and oriented; behavior is guarded; dressed in casual attire; mood is described as anxious ; eye contact appropriate; Speech is normal rate, volume and not pressured; thought process is organized; Thought content is on discharge; denies SI/HI/VH/AH. Diagnostics Vital Signs (24Hr): Vital Signs - 24 hr 02/17/24 20:00 02/18/24 08:00 Temperature 97.8 F 98.1 F Pulse Rate 74 68 Respiratory Rate 18 16 Blood Pressure 122/68 109/68 Pulse Oximetry 99 96 Oxygen Delivery Method Room Air Room Air BMI result Body Mass Index 17.6 Labs 02/14/24 17:49 Medications Medications Current Medications Acetaminophen (Acetaminophen 325 Mg Tablet) 650 mg PO Q6H PRN PRN Reason: Headache/Pain Mild Scale (1-3) Last Admin: 02/16/24 21:00 Dose: 650 mg Al Hydroxide/Mg Hydroxide (Magnesium Hydrox/Alum Hydrox 30 Ml Oral.Susp) 30 ml PO Q6H PRN PRN Reason: Heartburn/Nausea Aripiprazole (Aripiprazole 2 Mg Tablet) 2 mg PO DAILY [facility] Last Admin: 02/18/24 08:45 Dose: 2 mg Hydroxyzine HCl (Hydroxyzine Hcl 50 Mg Tablet) 50 mg PO Q6H PRN PRN Reason: Anxiety Last Admin: 02/18/24 06:49 Dose: 50 mg Lorazepam (Lorazepam 1 Mg Tablet) 1 mg PO Q8H PRN PRN Reason: Anxiety Last Admin: 02/17/24 20:46 Dose: 1 mg Magnesium Hydroxide (Milk Of Magnesia 30 Ml Oral.Susp) 30 ml PO DAILY PRN PRN Reason: Constipation Melatonin (Melatonin 3 Mg Tablet) 6 mg PO BEDTIME [facility] Last Admin: 02/17/24 20:46 Dose: 6 mg Methadone HCl (Methadone Hcl 20 Mg/2 Ml Oral.Conc) 70 mg PO DAILY [facility] Last Admin: 02/18/24 08:01 Dose: 70 mg Mirtazapine (Mirtazapine 30 Mg Tablet) 30 mg PO BEDTIME [facility] Last Admin: 02/17/24 20:46 Dose: 30 mg Non-Formulary Medication (Lumateperone [Caplyta]) 42 mg PO DAILY [facility] Oxcarbazepine (Oxcarbazepine 300 Mg Tablet) 300 mg PO BID [facility] Last Admin: 02/18/24 08:45 Dose: 300 mg Quetiapine Fumarate (Quetiapine Fumarate 50 Mg Tablet) 50 mg PO Q4H PRN PRN Reason: Anxiety Last Admin: 02/15/24 20:03 Dose: 50 mg Sertraline HCl (Sertraline Hcl 50 Mg Tablet) 50 mg PO DAILY [facility] Last Admin: 02/18/24 08:44 Dose: 50 mg Trazodone HCl (Trazodone Hcl 50 Mg Tablet) 50 mg PO BEDTIME MRX1 PRN PRN Reason: Insomnia Last Admin: 02/15/24 20:03 Dose: 50 mg Allergies Allergies Allergy/AdvReac Type Severity Reaction Status Date / Time No Known Allergies Allergy Verified 08/16/23 17:17 Assessment & Plan Assessment & Plan (1) Bipolar disorder: Status: Acute Code(s): F31.9 - Bipolar disorder, unspecified (2) Polysubstance use disorder: Status: Acute Code(s): F19.90 - Other psychoactive substance use, unspecified, uncomplicated Plan 38-year-old female with history of bipolar disorder, currently residing at [facility] for the last 1 month, direct admission from [facility] in the context program staff concern around auditory hallucinations. Patient does present with thought disorder and may be internally preoccupied. Is guarded. Very poor historian around past treatment and current regimen, which is based off medication reconciliation from [facility]. Overall currently unable to care for self. Admitted on a Section 12 B. Overall will not make any med changes, see how patient settles into the milieu and make any adjustments if needed. Otherwise will need to liaise with community-based program. 02/15: Keeping to self. guarded. patient reports feeling okay today; pt stated, everything stressed me out so I can to the hospital. I want to go back to [facility] . per nursing, slept 9 hours last night. denies SI/HI/VH/AH. 12b up on 02/18/24. Continue current tx plan. 02/16: Signed CV then 3 day notice. 3 day up on 02/19/23. guarded. patient reports feeling anxious today; focused on returning to [facility]. Patient reports she plans on contacting them today to see if they have a bed for her. per nursing, slept 8 hours last night. denies SI/HI/VH/AH. Encouraged to attend groups. 02/17: 3 day up on 02/19/23. Laying in bed most of morning. patient continues to report feeling anxious today; patient reports she plans on contacting her mother today to see if she is allowed to stay with her when discharged. Pt stated, if I can't stay with my mom then I'll either go to a jail or the street . Patient reports she has outpatient psychiatric providers that she plans on following up with. denies SI/HI/VH/AH. Encouraged to attend groups. Patient educated on: medication risk/benefits Reason for continued inpatient stay Substantial Risk for: med/psych decompensation Time Spent With Patient Time: Total time managing care of this patient today _20___ minutes.
[2024-02-18] MEDS: LORazepam 1 MG TABLET PO ×2 (12:56→21:15)
[2024-02-18] MEDS: Acetaminophen 325 MG TABLET 650 MG PO (14:18)
[2024-02-18 19:55] VITALS: BP 112/62; PULSE 69; TEMP 37.1; O2SAT 97
[2024-02-18] MEDS: Melatonin 3 MG TABLET 6 MG PO (21:12)
[2024-02-18] MEDS: Mirtazapine 30 MG TABLET PO (21:12)
[2024-02-19 08:00] VITALS: BP 133/79; PULSE 71; RESP 16; TEMP 37.4; O2SAT 100
[2024-02-19] MEDS: methADONE HCl 20 MG/2 ML ORAL.CONC 70 MG PO (08:37)
[2024-02-19] MEDS: Sertraline HCL 50 MG TABLET PO (09:20)
[2024-02-19] MEDS: ARIPiprazole 2 MG TABLET PO (09:20)
[2024-02-19] MEDS: OXcarbazepine 300 MG TABLET PO (09:20)
[2024-02-19] MEDS: LORazepam 1 MG TABLET PO (09:24)
[2024-02-19] MEDS: QUEtiapine Fumarate 50 MG TABLET PO (09:24)
--- NOTE | 2024-02-19 09:49 | P.PNPSI_ITS ---
Subjective Subjective Reason For Visit: Psychosis Diagnostics Vital Signs (24Hr): Vital Signs - 24 hr 02/18/24 19:55 02/19/24 08:00 Temperature 98.8 F 99.4 F Pulse Rate 69 71 Respiratory Rate 16 Blood Pressure 112/62 133/79 Pulse Oximetry 97 100 Oxygen Delivery Method Room Air Room Air BMI result Body Mass Index 17.6 Labs 02/14/24 17:49 Medications Medications Current Medications Acetaminophen (Acetaminophen 325 Mg Tablet) 650 mg PO Q6H PRN PRN Reason: Headache/Pain Mild Scale (1-3) Last Admin: 02/18/24 14:18 Dose: 650 mg Al Hydroxide/Mg Hydroxide (Magnesium Hydrox/Alum Hydrox 30 Ml Oral.Susp) 30 ml PO Q6H PRN PRN Reason: Heartburn/Nausea Aripiprazole (Aripiprazole 2 Mg Tablet) 2 mg PO DAILY [facility] Last Admin: 02/19/24 09:20 Dose: 2 mg Hydroxyzine HCl (Hydroxyzine Hcl 50 Mg Tablet) 50 mg PO Q6H PRN PRN Reason: Anxiety Last Admin: 02/18/24 12:56 Dose: 50 mg Lorazepam (Lorazepam 1 Mg Tablet) 1 mg PO Q8H PRN PRN Reason: Anxiety Last Admin: 02/19/24 09:24 Dose: 1 mg Magnesium Hydroxide (Milk Of Magnesia 30 Ml Oral.Susp) 30 ml PO DAILY PRN PRN Reason: Constipation Melatonin (Melatonin 3 Mg Tablet) 6 mg PO BEDTIME [facility] Last Admin: 02/18/24 21:12 Dose: 6 mg Methadone HCl (Methadone Hcl 20 Mg/2 Ml Oral.Conc) 70 mg PO DAILY [facility] Last Admin: 02/19/24 08:37 Dose: 70 mg Mirtazapine (Mirtazapine 30 Mg Tablet) 30 mg PO BEDTIME [facility] Last Admin: 02/18/24 21:12 Dose: 30 mg Oxcarbazepine (Oxcarbazepine 300 Mg Tablet) 300 mg PO BID [facility] Last Admin: 02/19/24 09:20 Dose: 300 mg Quetiapine Fumarate (Quetiapine Fumarate 50 Mg Tablet) 50 mg PO Q4H PRN PRN Reason: Anxiety Last Admin: 02/19/24 09:24 Dose: 50 mg Sertraline HCl (Sertraline Hcl 50 Mg Tablet) 50 mg PO DAILY [facility] Last Admin: 02/19/24 09:20 Dose: 50 mg Trazodone HCl (Trazodone Hcl 50 Mg Tablet) 50 mg PO BEDTIME MRX1 PRN PRN Reason: Insomnia Last Admin: 02/15/24 20:03 Dose: 50 mg Allergies Allergies Allergy/AdvReac Type Severity Reaction Status Date / Time No Known Allergies Allergy Verified 08/16/23 17:17 Assessment & Plan Assessment & Plan (1) Bipolar disorder: Status: Acute Code(s): F31.9 - Bipolar disorder, unspecified (2) Polysubstance use disorder: Status: Acute Code(s): F19.90 - Other psychoactive substance use, unspecified, uncomplicated Plan 38-year-old female with history of bipolar disorder, currently residing at [facility] for the last 1 month, direct admission from [facility] in the context program staff concern around auditory hallucinations. Patient does present with thought disorder and may be internally preoccupied. Is guarded. Very poor historian around past treatment and current regimen, which is based off medication reconciliation from [facility]. Overall currently unable to care for self. Admitted on a Section 12 B. Overall will not make any med changes, see how patient settles into the milieu and make any adjustments if needed. Otherwise will need to liaise with community-based program. 02/15: Keeping to self. guarded. patient reports feeling okay today; pt stated, everything stressed me out so I can to the hospital. I want to go back to [facility] . per nursing, slept 9 hours last night. denies SI/HI/VH/AH. 12b up on 02/18/24. Continue current tx plan. 02/16: Signed CV then 3 day notice. 3 day up on 02/19/23. guarded. patient reports feeling anxious today; focused on returning to [facility]. Patient reports she plans on contacting them today to see if they have a bed for her. per nursing, slept 8 hours last night. denies SI/HI/VH/AH. Encouraged to attend groups. 02/17: 3 day up on 02/19/23. Laying in bed most of morning. patient continues to report feeling anxious today; patient reports she plans on contacting her mother today to see if she is allowed to stay with her when discharged. Pt stated, if I can't stay with my mom then I'll either go to a correction or the street . Patient reports she has outpatient psychiatric providers that she plans on following up with. denies SI/HI/VH/AH. Encouraged to attend groups. Time Spent With Patient Time: Total time managing care of this patient today ____ minutes.
[2024-02-19] MEDS: Naloxone HCl Nasal TAKE HOME 4 MG SPRAY 8 MG NOSTRILALT (12:34)
--- NOTE | 2024-02-19 13:01 | P.DS_ITS ---
DS: Providers Provider Date of Service: 02/19/24 Date of admission: 02/14/24 16:57 Date of discharge: 02/19/24 Primary care physician: Unknown Physician Attending physician on admission: Nikhil Trevino Consults: 02/14/24 17:57 Consult to Hospitalist Routine Comment: Consulting Provider: [facility] [place] Hospitalists Reason For Exam: Direct admit ([facility]) H and P Attending physician on discharge: Dandre Bentley Discharging clinician: Ariela Cintron DS: Diagnosis Discharge Diagnosis (1) Bipolar disorder: Status: Acute (2) Polysubstance use disorder: Status: Acute DS: Medications Discharge Medications Home Medications: Home Medications ?Medication ?Instructions ?Recorded ?Confirmed aripiprazole 2 mg tablet 2 mg PO DAILY 02/14/24 02/14/24 hydroxyzine HCl 50 mg tablet 50 mg PO Q6H PRN Anxiety 02/14/24 02/14/24 lorazepam 1 mg tablet (Ativan) 1 mg PO Q8H PRN Anxiety 02/14/24 02/14/24 lumateperone 42 mg capsule 42 mg PO DAILY 02/14/24 02/14/24 (Caplyta) melatonin 5 mg tablet 6 mg PO BEDTIME 02/14/24 02/14/24 methadone 70 mg PO DAILY 02/14/24 02/14/24 mirtazapine 30 mg tablet 30 mg PO BEDTIME 02/14/24 02/14/24 oxcarbazepine 300 mg tablet 300 mg PO BID 02/14/24 02/14/24 quetiapine 50 mg tablet 50 mg PO Q4H PRN Anxiety 02/14/24 02/14/24 sertraline 50 mg tablet 50 mg PO DAILY 02/14/24 02/14/24 trazodone 50 mg tablet 50 mg PO BEDTIME PRN Insomnia 02/14/24 02/14/24 Mental Status Exam Mental Status Exam Narrative: Pt is alert and oriented; behavior is guarded; dressed in casual attire; mood is described as good ; eye contact appropriate; Speech is normal rate, volume and not pressured; thought process is organized; Thought content is on discharge; denies SI/HI/VH/AH. Data Data Completed and Pending Completed studies during hospitalization [Text1]: 02/14/24 02/15/24 02/15/24 17:49 07:45 14:20 Sodium 141 Potassium 4.2 Chloride 111 H Carbon Dioxide 22 Anion Gap 12 BUN 13 Creatinine 0.71 Estim Creat Clear Calc 69.9 Estimated GFR > 60 Random Glucose 84 Calcium 9.1 Total Bilirubin 0.6 AST 26 ALT 14 Alkaline Phosphatase 52 Total Protein 7.2 Albumin 4.1 Triglycerides 96 Cholesterol 179 LDL Cholesterol, Calc 98 HDL Cholesterol 62 Urine Opiates Screen Not Detected Ur Buprenorphine Scrn Not Detected Ur Oxycodone Screen Not Detected Urine Methadone Screen Positive H Urine Fentanyl Screen Not Detected Ur Barbiturates Screen Not Detected Ur Phencyclidine Scrn Not Detected Ur Amphetamines Screen Not Detected U Benzodiazepines Scrn Not Detected Urine Cocaine Screen Not Detected U Marijuana (THC) Screen Not Detected Hepatitis A IgM Ab Hep Bs Antigen Hep Bs Antibody Hep B Core Total Ab Hepatitis C Ab (EIA) HIV 1&2 Ab/P24 Ag 4thGn 02/15/24 14:21 Sodium Potassium Chloride Carbon Dioxide Anion Gap BUN Creatinine Estim Creat Clear Calc Estimated GFR Random Glucose Calcium Total Bilirubin AST ALT Alkaline Phosphatase Total Protein Albumin Triglycerides Cholesterol LDL Cholesterol, Calc HDL Cholesterol Urine Opiates Screen Ur Buprenorphine Scrn Ur Oxycodone Screen Urine Methadone Screen Urine Fentanyl Screen Ur Barbiturates Screen Ur Phencyclidine Scrn Ur Amphetamines Screen U Benzodiazepines Scrn Urine Cocaine Screen U Marijuana (THC) Screen Hepatitis A IgM Ab Nonreactive Hep Bs Antigen Negative Hep Bs Antibody REACTIVE Hep B Core Total Ab Nonreactive Hepatitis C Ab (EIA) Reactive H HIV 1&2 Ab/P24 Ag 4thGn Nonreactive DS: Summary Hospital Course Hospital Course: admitted to from [facility] via ambulance on a 12B at 1718 for treatment of unspecified schizophrenia. Much of admission done from medical record due to unwillingness to participate in admission. Prior to admission, she [facility] living [facility] in which EMS was called due to her experiencing AH. Upon arrival to , she denies SI/HI/AVH but is pressured speech and self dialoguing when not speaking to RN. She presents as disheveled and anxious. She denies smoking, drinking or use of substances. Tox screen not done at prior facility, Nikhil Trevino MD aware. EKG provided by prior facility, no significant findings. Skin check completed and unremarkable. She is A&O x4. She reports not eating in a few days and is requesting Ensures stating she has recently lost weight due to depression. She denies complaints or issues at this time. Placed on 15 minute checks for safety Today: patient does present as disorganized in thought form and tangential and guarded. Initially appeared to endorse auditory hallucinations, but later recanted this. States that she needs medications to help her feel more calm. Making statements that she might have an ear infection because her son had tubes put in his ear as did her aunt and she also had a fractured nose in the past. Reported somebody at her program called 911 and she is frustrated regarding this and wants discharge. Educated on Section 12 the Nguyen warning. Has been at the end our program for 1 month. Prior to that was staying at the [facility]. Reports having an apartment in [place]. Stressors include being laid off from her job at [employer] 1 year ago. Is a poor historian regarding psychiatric treatment and current medication regimen. Reports not having a psychiatrist within the last year at least. Current regimen from the [facility] program. Cannot remember past psychiatric medication trials. Regarding substance use, reports methadone 70 mg has been helpful and has not used heroin in over 1 year. Has not drank in over a couple of years. Reports feeling safe here. Would like to return to her program at [facility] as that is not possible that her apartment in [place]. 38-year-old female with history of bipolar disorder, currently residing at [facility] for the last 1 month, direct admission from [facility] in the context program staff concern around auditory hallucinations. Patient does present with thought disorder and may be internally preoccupied. Is guarded. Very poor historian around past treatment and current regimen, which is based off medication reconciliation from [facility]. Overall currently unable to care for self. Admitted on a Section 12 B. Overall will not make any med changes, see how patient settles into the milieu and make any adjustments if needed. Otherwise will need to liaise with community-based program. Keeping to self. guarded. patient reports feeling okay today; pt stated, everything stressed me out so I can to the hospital. I want to go back to [facility] . per nursing, slept 9 hours last night. denies SI/HI/VH/AH. 12b up on 02/18/24. Continue current tx plan. Signed CV then 3 day notice. 3 day up on 02/19/23. guarded. patient reports feeling anxious today; focused on returning to [facility]. Patient reports she plans on contacting them today to see if they have a bed for her. per nursing, slept 8 hours last night. denies SI/HI/VH/AH. Encouraged to attend groups. 3 day up on 02/19/23. Laying in bed most of morning. patient continues to report feeling anxious today; patient reports she plans on contacting her mother today to see if she is allowed to stay with her when discharged. Pt stated, if I can't stay with my mom then I'll either go to a fdc or the street . Patient reports she has outpatient psychiatric providers that she plans on following up with. denies SI/HI/VH/AH. Encouraged to attend groups. Patient reports feeling good today; she plans on returning to [facility] to obtain her belongings and plans on following up with her outpatient providers. denies SI/HI/VH/AH. Status at Discharge Cognitive/behavioral status at discharge: Patient is not in imminent risk of harm to self or others and has a safety plan that includes presenting to the closest ER or calling 911 if feeling unsafe. Functional status at discharge: independent ambulation Overall status at discharge: patient is back to baseline Time Spent with Patient Time attestation: Total time managing care of this patient today _20___ minutes. Time spent: Less than 30 minutes Discharge Plan Discharge Anticipated Discharge Date/Time: 02/19/24 11:45 Patient Disposition: Home, Self-Care Discharge Diagnosis: Bipolar d/o, polysubstance use d/o Referrals: [facility] [Provider Group] - 1 Week (02-18-24 [facility] was added to patients chart. Please call [phone] to schedule your follow up appt.) Discharge Medications: Continued trazodone 50 mg Tablet 50 mg PO BEDTIME PRN (Reason: Insomnia) hydroxyzine HCl 50 mg tablet 50 mg PO Q6H PRN (Reason: Anxiety) oxcarbazepine 300 mg tablet 300 mg PO BID mirtazapine 30 mg tablet 30 mg PO BEDTIME lorazepam [Ativan] 1 mg Tablet 1 mg PO Q8H PRN (Reason: Anxiety) sertraline 50 mg tablet 50 mg PO DAILY aripiprazole 2 mg tablet 2 mg PO DAILY quetiapine 50 mg Tablet 50 mg PO Q4H PRN (Reason: Anxiety) melatonin 5 mg tablet 6 mg PO BEDTIME Caplyta 42 mg capsule 42 mg PO DAILY methadone 10 mg/mL 70 mg PO DAILY Discontinued bupropion HCl [Wellbutrin XL] 150 mg tablet extended release 24 hr 150 mg PO DAILY Discharge Orders: Discharge Order (Routine); Ordered 02/19/24 Ordered By: Ariela Cintron Diet: Regular diet Activity on Discharge: As tolerated Stand Alone Forms: Patient Portal Discharge page, Community Support Print Language: Albanian Care Plan Goals: Maintain mood and safe behaviors Take medications as prescribed Continue to pursue sobriety Practice coping skills Continue with outpatient providers and reach out to them as needed Health Concerns: Mood stability and behaviors Sobriety Plan of Treatment: Follow up with your PCP, psychiatric provider and other outpatient providers regarding above concerns Take medications as prescribed Assessment: Patient is not in imminent risk of harm to self or others and has a safety plan that includes presenting to the closest ER or calling 911 if feeling unsafe.
== END 2024-02-19 13:00 | disposition home or self-care (01) | DRG 753 ==
PROVIDERS: Psychiatry & Neurology Psychiatry; Student in an Organized Health Care Education/Training Program; Admitting Provider Psychiatry & Neurology Psychiatry; Responsible Provider Registered Nurse; Visit Provider Psychiatry & Neurology Psychiatry
DX: F31.9 Bipolar disorder, unspecified (principal); F19.90 Other psychoactive substance use, unspecified, uncomplicated; Z79.899 Other long term (current) drug therapy
CPT/HCPCS: 36415; 80053; 80061; 80307; 86704; 86706; 86709; 86803; 87340; 87389

== ENCOUNTER → 2024-02-14 16:57 | Outpatient (BNV) | payer OTHER, SELFPAY | PROVIDERS: Admitting Provider Psychiatry & Neurology Psychiatry; Visit Provider Student in an Organized Health Care Education/Training Program | DX: Z00.8 Encounter for other general examination (principal) | CPT/HCPCS: 99429 ==

== ENCOUNTER → 2024-02-14 16:57 | Outpatient (BNV) | payer OTHER, SELFPAY | PROVIDERS: Admitting Provider Psychiatry & Neurology Psychiatry; Visit Provider Psychiatry & Neurology Psychiatry | DX: F31.9 Bipolar disorder, unspecified (principal); F19.90 Other psychoactive substance use, unspecified, uncomplicated | CPT/HCPCS: 99231; 99232 ==

== ENCOUNTER 2024-02-20 21:47 | Inpatient (IN) | payer MEDICAID, OTHER, SELFPAY ==
[2024-02-20 22:06] VITALS: BP 114/78; BP 125/80; PULSE 85; PULSE 88; RESP 16; TEMP 36.7; O2SAT 95; O2SAT 99; BMI 17.6
[2024-02-20 22:52] VITALS: BP 125/80; PULSE 85; RESP 16; TEMP 36.7; O2SAT 95
--- NOTE | 2024-02-20 22:57 | ED_ITS ---
HPI - Psych General Chief Complaint: General Medical Stated Complaint: MISSED METHADONE. FEELING UNSAFE AND UNWELL Time Seen by Provider: 02/20/24 21:56 Source: patient, EMS and old records reviewed Mode of arrival: EMS Limitations: no limitations History of Present Illness ED Provider: Evgeny CHIN Narrative: 38 yo female with PMH of opiate use disorder on methadone 70mg, bipolar substance abuse here feeling anxious after missing her methadone dose she has been walking the streets and states has nowhere to go states she was at [facility] but her dad picked up her stuff. She is depressed and wants to go back. Denies SI/HI MD complaint: feels depressed and other Onset (ago): day(s) (1) Duration: constant History of same: Yes Relieving factors: none Exacerbating factors: other Context: significant life stressor Associated psychiatric symptoms: depression Associated symptoms: denies other symptoms Treatments prior to arrival: none Related Data Home Medications ?Medication ?Instructions ?Recorded ?Confirmed aripiprazole 2 mg tablet 2 mg PO DAILY 02/14/24 02/14/24 hydroxyzine HCl 50 mg tablet 50 mg PO Q6H PRN Anxiety 02/14/24 02/14/24 lorazepam 1 mg tablet (Ativan) 1 mg PO Q8H PRN Anxiety 02/14/24 02/14/24 lumateperone 42 mg capsule 42 mg PO DAILY 02/14/24 02/14/24 (Caplyta) melatonin 5 mg tablet 6 mg PO BEDTIME 02/14/24 02/14/24 methadone 70 mg PO DAILY 02/14/24 02/14/24 mirtazapine 30 mg tablet 30 mg PO BEDTIME 02/14/24 02/14/24 oxcarbazepine 300 mg tablet 300 mg PO BID 02/14/24 02/14/24 quetiapine 50 mg tablet 50 mg PO Q4H PRN Anxiety 02/14/24 02/14/24 sertraline 50 mg tablet 50 mg PO DAILY 02/14/24 02/14/24 trazodone 50 mg tablet 50 mg PO BEDTIME PRN Insomnia 02/14/24 02/14/24 Allergies Allergy/AdvReac Type Severity Reaction Status Date / Time No Known Allergies Allergy Verified 02/20/24 22:11 Review of Systems Review of Systems: Constitutional : No Fever, No Chills ENT/Mouth : No Ear Pain, No Nasal Congestion, No sore throat Eyes: No Eye Pain, No Swelling, No Redness Cardiovascular : No Chest Pain, No SOB Respiratory : No Cough, No Sputum, No Dyspnea Gastrointestinal : No Nausea, No Vomiting, No Diarrhea, No Hematochezia, No Melena Genitourinary : No Dysuria, No Urinary Frequency, No Hematuria Musculoskeletal : No Myalgias Skin : No Skin Lesions, No rash Neuro : No Weakness, No Numbness, No Paresthesias, No Dizziness, No Headache Psych : positive Anxiety, positive Depression, no SI/HI All other systems reviewed and are negative [facility] Past Medical History Attestation statement: The following information was validated with the patient. Source: old records reviewed Medical History IVDU (intravenous drug user) Polysubstance use disorder Hepatitis C Social History Social History Household Members: None Housing: Apartment Housing Other:: Sober Living Do you presently have visiting nurse or other home services: No Unable to assess alcohol history related to: Unknown Patient Tobacco Use Status: Never used Tobacco e-Cigarette/Vaping Use: Never Used Second Hand Smoke Exposure: No Substance Use Type: Unknown Advance Directives: No Advance Directives Information Provided: No service: No Sexual orientation: Don't Know Physical Exam Vital Signs: Vital Signs: Last Vital Signs Temp 98.0 F 02/20/24 22:06 Pulse 85 02/20/24 22:06 Resp 16 02/20/24 22:06 BP 125/80 02/20/24 22:06 Pulse Ox 95 02/20/24 22:06 O2 Del Method Room Air 02/20/24 22:06 BMI result Body Mass Index 17.6 Appearance: Alert. Oriented X3. No acute distress. Eyes: Pupils equal, round and reactive to light. ENT: Pharynx normal. Neck: Normal inspection. Neck supple. CVS: Normal heart rate and rhythm. Pulses normal. Respiratory: No respiratory distress. Breath sounds normal. Abdomen: Soft and nontender. Skin: Skin warm and dry. Normal skin color. Normal skin turgor. Extremities: No lower extremity edema. No calf ttp Neuro: Oriented X 3. No motor deficit. No sensory deficit. CN2-12 intact Medical Decision Making Medical Decision Making MDM Narrative: 38 yo female with PMH of opiate use disorder on methadone 70mg, bipolar substance abuse here with c/o missed methadone but then homeless depressed and wants to go back to [facility]. She has no medical complaints at this time will dose x 1 methadone and PO ativan. Refer to CARE team. Differential Diagnosis Differential Diagnoses: The differential diagnosis associated with the presentation includes depression, poor social support substance abuse Admission/Observation Consideration of admission/observation: Escalation of care including admission/observation considered physician observation started at 1109pm pending CARE team Lab Data [facility] Lab Attestation statement: I reviewed the patient's lab results. Independent Historian Clinical information obtained from an independent historian. History obtained from or confirmed by: EMS External Record Review External record reviewed: Inpatient record Discharge Plan Discharge Clinical Impression: Polysubstance use disorder Patient Disposition: Still a Patient Prescriptions: No Action trazodone 50 mg Tablet 50 mg PO BEDTIME PRN (Reason: Insomnia) hydroxyzine HCl 50 mg tablet 50 mg PO Q6H PRN (Reason: Anxiety) oxcarbazepine 300 mg tablet 300 mg PO BID mirtazapine 30 mg tablet 30 mg PO BEDTIME lorazepam [Ativan] 1 mg Tablet 1 mg PO Q8H PRN (Reason: Anxiety) sertraline 50 mg tablet 50 mg PO DAILY aripiprazole 2 mg tablet 2 mg PO DAILY quetiapine 50 mg Tablet 50 mg PO Q4H PRN (Reason: Anxiety) melatonin 5 mg tablet 6 mg PO BEDTIME Caplyta 42 mg capsule 42 mg PO DAILY methadone 10 mg/mL 70 mg PO DAILY Print Language: Turkish
[2024-02-20 23:09] LABS: Basophils Percent Auto 0.2 % (0-2); Eosinophils Absolute Auto 0.1 X10*3/uL (0.0-0.4); Eosinophils Percent Auto 0.7 % (0-4); Hematocrit 37.4 % (37.0-47.0); Hemoglobin 12.2 g/dl (12.0-16.0); Imm Gran Abs Auto 0.06 X10*3/uL (0.00-0.03); Imm Gran Pct Auto 0.7 % (0.0-0.4); Lymphocytes Absolute Auto 1.5 X10*3/uL (1.2-4.9); MANUAL DIFF FLAG NO; Mean Corpuscular HGB Conc 32.6 g/dl (31.0-35.0); Mean Corpuscular Hemoglobin 28.4 pg (27.0-33.0); Mean Platelet Volume 9.5 fL (9.4-12.3); Monocytes Absolute Auto 0.7 X10*3/uL (0.1-1.2); Monocytes Percent Auto 8.2 % (2-11); Neutrophils Absolute Auto 6.4 x10*3/uL (2.0-8.3); Neutrophils Percent Auto 73.2 % (45-73); Platelet Count 264 X10*3/uL (160-400); Red Cell Distribution Width 14.6 % (11.0-16.0); White Blood Count 8.7 X10*3/uL (4.8-10.8)
[2024-02-20] MEDS: LORazepam 1 MG TABLET PO (23:17)
[2024-02-20] MEDS: methADONE HCl 20 MG/2 ML ORAL.CONC 40 MG PO (23:17)
[2024-02-20 23:20] LABS: Amphetamine Screen Urine Not Detected (Not Detect); Barbiturates, Urine Not Detected (Not Detect); Benzodiazepines Screen Urine POSITIVE (Not Detect); Buprenorphine Scr Not Detected (Not Detect); Cannabinoid Screen Urine Not Detected (Not Detect); Cocaine Screen Urine POSITIVE (Not Detect); Fentanyl, urine POSITIVE (Not Detect); Methadone Screen, Urine Positive (Not Detect); Opiate Screen Urine Not Detected (Not Detect); Oxycodone Screen Urine Not Detected (Not Detect); Phencyclidine Screen Urine Not Detected (Not Detect)
[2024-02-20 23:31] LABS: Alanine Aminotransferase 27 U/L (0-31); Albumin Level 4.5 g/dL (3.5-5.0); Alkaline Phosphatase 50 U/L (39-117); Anion Gap 11 (12-20); Aspartate Amino Transferase 32 U/L (5-31); Bilirubin Direct < 0.2 mg/dL (0.0-0.5); Bilirubin Total 0.2 mg/dL (0.0-1.0); Blood Urea Nitrogen 14 mg/dL (9-16); Calcium 9.1 mg/dL (8.4-10.2); Carbon Dioxide 28 mmol/L (22-29); Chloride 107 mmol/L (96-108); Creatinine Clr Calc Pharmacy 76.3; Estimated Glomerular Filt Rate > 60; Ethanol < 10 mg/dL; Glucose Random 122 mg/dL (60-115); HCG Quantitative < 2 mIU/mL; Magnesium 2.4 mg/dL (1.6-2.6); Sodium 142 mmol/L (135-145); Total Protein 7.8 g/dL (6.5-8.0)
--- NOTE | 2024-02-21 02:57 | PC.NURSE ---
Chance message sent to provider, Dr Chowdhury noting that med list is complete and requested for medications to be reconciled and ordered. No new order at this time.
--- NOTE | 2024-02-21 06:09 | PC.NURSE ---
tw attempted to contact [facility] for dosing verification- weekend hours start at 7am.
--- NOTE | 2024-02-21 07:09 | PC.NURSE ---
Assumed care of patient at 0645, patient appears to be sleeping, respirations even and unlabored, no apparent distress noted. Continue plan of care for CARE team follow up this am
[2024-02-21 08:13] VITALS: BP 94/74; PULSE 78; RESP 14; TEMP 36.7; O2SAT 97
[2024-02-21] MEDS: Sertraline HCL 50 MG TABLET PO (08:33)
[2024-02-21] MEDS: OXcarbazepine 300 MG TABLET PO ×2 (08:33→20:01)
--- NOTE | 2024-02-21 09:16 | PC.NURSE ---
Attempted to verify methadone, called [facility], forwarded to voicemail
[2024-02-21] MEDS: LORazepam 1 MG TABLET PO ×2 (10:58→20:02)
[2024-02-21] MEDS: hydrOXYzine HCL 50 MG TABLET PO (10:58)
--- NOTE | 2024-02-21 11:12 | PC.NURSE ---
Patient reporting that she usually doses at [facility] in [place]. Methadone dosing location is closed on the weekend and the methadone verification line goes to voicemail. Two attempts made at this time. Dr. Xavier aware. This RN requested patient receive 40mg methadone starting dose for the time being to hold patient over for comfort until full dose can be verified
[2024-02-21] MEDS: methADONE HCl 20 MG/2 ML ORAL.CONC 30 MG PO (11:58)
[2024-02-21 12:13] LABS: Appearance Urine Clear; Color Urine Yellow; Glucose Urine UA Negative (Negative); Leukocyte Esterase Urine Negative (Negative); Nitrite Urine Negative (Negative); PH 6.5 (5.0-9.0); Specific Gravity - Urine 1.025 (1.005-1.025); Urine Blood Negative (Negative); Urine Ketones Negative (Negative); Urine Protein Trace mg/dL (Neg-Trace)
--- NOTE | 2024-02-21 16:17 | MHC.RECOVRN ---
Per [facility], there are is no bed available today for pt.
[2024-02-21] MEDS: Melatonin 3 MG TABLET 6 MG PO (20:01)
[2024-02-21] MEDS: Mirtazapine 30 MG TABLET PO (20:01)
[2024-02-21 20:06] VITALS: BP 125/82; PULSE 78; RESP 16; TEMP 36.5; O2SAT 100
[2024-02-22 06:12] VITALS: BP 93/60; PULSE 58; RESP 16; TEMP 36.7; O2SAT 99
[2024-02-22] MEDS: LORazepam 1 MG TABLET PO ×2 (06:33→20:03)
[2024-02-22] MEDS: hydrOXYzine HCL 50 MG TABLET PO (06:34)
--- NOTE | 2024-02-22 06:35 | PC.NURSE ---
Patient slept through the night, no distress observed/reported, disposition per recovery team pending, 15 minutes safety check, no behavior and safety concerns, [facility] called at [phone]/no response/voicemail left with call back number, for methadone verification, will continue to monitor
--- NOTE | 2024-02-22 07:25 | PC.NURSE ---
Assumed care of patient at 0645, patient appears to be sleeping, respirations even and unlabored, no apparent distress noted at this time. Continue plan of care for detox bedsearch
[2024-02-22] MEDS: OXcarbazepine 300 MG TABLET PO ×2 (08:20→22:20)
[2024-02-22] MEDS: Sertraline HCL 50 MG TABLET PO (08:20)
[2024-02-22] MEDS: ARIPiprazole 2 MG TABLET PO (08:21)
--- NOTE | 2024-02-22 08:21 | HE.PHANOTE ---
Methadone Received methadone verification form from Monika Mcqueen RN. Patient is treated at [facility] ). Patient takes Methadone 70 mg daily and was last at the clinic on 02/16/24 and received 7 take home bottles at that time.
--- NOTE | 2024-02-22 08:23 | MHC.RECOVRN ---
Pt's father reported yesterday that pt called him and had been stating delusional statements, talking about people he does not know of being with her there and asking father if she could move in with him at a house that per her father has been sold years ago. Additionally, the ED MHC reported that pt had been having hour-long conversations in her room by herself. Furthermore, per [facility] pt does not meet criteria for ATS due to only using x1 day and already being on methadone 70mg.
[2024-02-22] MEDS: methADONE HCl 20 MG/2 ML ORAL.CONC 70 MG PO (09:17)
--- NOTE | 2024-02-22 09:29 | PHA.MEDREC ---
Pharmacy Consult ? Medication Reconciliation Pharmacy has completed the medication reconciliation. Pt recently discharged 02/19/24. Utilized discharge summary to confirm meds.
[2024-02-22] MEDS: Mirtazapine 30 MG TABLET PO (20:01)
[2024-02-22] MEDS: Melatonin 3 MG TABLET 6 MG PO (20:03)
[2024-02-22 20:10] VITALS: BP 117/74; PULSE 76; RESP 20; TEMP 36.7; O2SAT 95
[2024-02-23] MEDS: LORazepam 1 MG TABLET PO ×2 (05:59→16:24)
[2024-02-23] MEDS: QUEtiapine Fumarate 50 MG TABLET PO (05:59)
[2024-02-23 06:05] VITALS: BP 106/67; PULSE 64; RESP 18; TEMP 36.8; O2SAT 99
[2024-02-23] MEDS: OXcarbazepine 300 MG TABLET PO ×2 (08:19→20:46)
[2024-02-23] MEDS: Sertraline HCL 50 MG TABLET PO (08:19)
--- NOTE | 2024-02-23 08:21 | ECG_ITS ---
Test Reason : prolonged qtc Blood Pressure : */* mmHG Vent. Rate : 65 BPM Atrial Rate : 65 BPM P-R Int : 148 ms QRS Dur : 80 ms QT Int : 424 ms P-R-T Axes : 75 77 58 degrees QTcB Int : 440 ms Normal sinus rhythm Normal ECG No previous ECGs available Referred By: Sasha Kohler Electronically Signed By: Gagan Perez
[2024-02-23] MEDS: ARIPiprazole 2 MG TABLET PO (09:25)
[2024-02-23] MEDS: methADONE HCl 20 MG/2 ML ORAL.CONC 70 MG PO (09:25)
[2024-02-23 14:04] VITALS: BP 116/69; PULSE 78; RESP 14; TEMP 36.9; O2SAT 96
--- NOTE | 2024-02-23 14:59 | PC.NURSE ---
Pt refused flu vaccine at this time
[2024-02-23 15:15] VITALS: BMI 19.6
--- NOTE | 2024-02-23 15:18 | PC.ADMIT ---
Bronwyn is a 38-year-old female admitted from [facility] to on a CV for treatment of unspecified bipolar disorder and cocaine use disorder. Tox screen positive for methadone, fentanyl, cocaine and benzodiazepines. Pt has medical hx of asthma and Hep C. Skin check complete and unremarkable. Pt presented to the ED after missing her methadone dose and was feeling unwell and unsafe. Pt was recently discharged from on 02/19/24. Pt was arrested on 02/20/24 for shoplifting and spent the day in shelter. Pt is also on probation for an assault charge. Pt is alert and oriented, pleasant and cooperative. Thought process is organized, speech is tangential at times. Pt denies disturbances with sleep or appetite. Pt denies SI/HI/AH/VH but will reach out to staff if thoughts occur. Pt placed on 15 minute safety checks.
[2024-02-23] MEDS: hydrOXYzine HCL 50 MG TABLET PO (16:24)
[2024-02-23 19:54] VITALS: BP 157/72; PULSE 85; RESP 16; TEMP 36.9; O2SAT 96
[2024-02-23] MEDS: Mirtazapine 30 MG TABLET PO (20:46)
[2024-02-23] MEDS: Melatonin 3 MG TABLET 6 MG PO (20:47)
[2024-02-24 08:00] VITALS: BP 116/67; PULSE 87; RESP 14; TEMP 36.7; O2SAT 95
[2024-02-24] MEDS: methADONE HCl 20 MG/2 ML ORAL.CONC 70 MG PO (08:10)
[2024-02-24] MEDS: ARIPiprazole 2 MG TABLET PO (08:38)
[2024-02-24] MEDS: OXcarbazepine 300 MG TABLET PO ×2 (08:38→20:08)
[2024-02-24] MEDS: Sertraline HCL 50 MG TABLET PO (08:38)
[2024-02-24] MEDS: hydrOXYzine HCL 50 MG TABLET PO ×2 (08:39→20:09)
[2024-02-24] MEDS: LORazepam 1 MG TABLET PO ×2 (08:39→20:09)
--- NOTE | 2024-02-24 09:02 | HO.PSYADMNOT ---
HPI Date of Service: 02/24/24 Chief Complaint: SI HPI Narrative: per CARE team darryl, pt self-presented with c/o feeling unwell and unsafe after having missed her methadone dosing appointment. she reported she had recently been at [facility] and would like to go back. utox POS for methadone, fentanyl, cocaine, and benzos. pt had been discharged from a 3-day stay on on 02/18. she was arrested for shoplifting on 02/19 and spent the day in [facility]. she presented to [facility] later in the day on 02/19. CARE team described pt as labile, pressured, paranoid, delusional, tangential. she discussed her involvement with gangsters and [employer] gangs. on interview with MD, presentation consistent with that as observed by the CARE team. on being asked how she could be helped in the hospital, she stated she needed a safe place to go, services, and money. she expressed some paranoid delusions, such as that she has something in my head and everyone everywhere can hear it. she also noted, perhaps with some grandiosity, i'm cool in the government, suggesting she is at some elevated status within the federal government. redirection was difficult, but possible. pt agreed to DC caplyta as it is non-formulary and generally requires a PA. she agreed to increase her abilify from 2 mg daily to 5 mg daily and to otherwise continue her usual outpt medications regimen. she generally considers herself without mental illness, and convincing her to take medication was difficult. Past Psychiatric History: Very poor historian. Does not have medications ordered prescriber in a number of years. Reports current regiment is through provider at [facility]. Last inpatient episode was a few years ago which was in the context of cutting self. Has a history of overdosing and cutting self, but last time was a few years ago. Reports diagnosis of bipolar disorder and describes episodes of at least hypomania. Unclear correlation with substance use. Currently on methadone maintenance 70 mg and finds this very helpful. Medical Evaluation Reviewed: Yes [facility] Medical History IVDU (intravenous drug user) Polysubstance use disorder Hepatitis C Social History: reports having an [place] [facility]. Laid off from job at [employer] 1 year ago. 5-year-old son currently with father and they are . 7-year-old daughter with aunt in [place] for the last couple of years. Denied any active legal issues. reportedly on probation out of [place], [place], for A&B. Substance History: utox methadone, cocaine, fentanyl, and benzo POS. on methadone maintenance. h/o heroin use, last used about 1 yr ago. h/o EtOD use disorder, last use reportedly a couple years ago. daily crack cocaine use. fentanyl likely in cocaine. Diagnostics Vital Signs (24Hr): Vital Signs - 24 hr 02/23/24 14:04 02/23/24 19:54 02/24/24 08:00 Temperature 98.4 F 98.4 F 98.0 F Pulse Rate 78 85 87 Respiratory Rate 14 16 14 Blood Pressure 116/69 157/72 H 116/67 Pulse Oximetry 96 96 95 Oxygen Delivery Method Room Air Room Air Room Air BMI result Body Mass Index 19.6 Labs 02/20/24 23:02 02/20/24 23:02 Meds/Allergies Meds Home Medications ?Medication ?Instructions ?Recorded ?Confirmed ?Type aripiprazole 2 mg tablet 2 mg PO DAILY 02/14/24 02/21/24 History hydroxyzine HCl 50 mg tablet 50 mg PO Q6H PRN Anxiety 02/14/24 02/21/24 History lorazepam 1 mg tablet (Ativan) 1 mg PO Q8H PRN Anxiety 02/14/24 02/21/24 History lumateperone 42 mg capsule 42 mg PO DAILY 02/14/24 02/21/24 History (Caplyta) melatonin 5 mg tablet 6 mg PO BEDTIME 02/14/24 02/21/24 History mirtazapine 30 mg tablet 30 mg PO BEDTIME 02/14/24 02/21/24 History oxcarbazepine 300 mg tablet 300 mg PO BID 02/14/24 02/21/24 History quetiapine 50 mg tablet 50 mg PO Q4H PRN Anxiety 02/14/24 02/21/24 History sertraline 50 mg tablet 50 mg PO DAILY 02/14/24 02/21/24 History trazodone 50 mg tablet 50 mg PO BEDTIME PRN Insomnia 02/14/24 02/21/24 History methadone 10 mg/mL oral concentrate 70 mg PO DAILY 02/22/24 02/22/24 History Allergies Allergies Allergy/AdvReac Type Severity Reaction Status Date / Time No Known Allergies Allergy Verified 02/20/24 22:11 Mental Status Exam Mental Status Exam Narrative: disheveled, hospital clothes. PMA of pacing, fidgeting with objects in the room. cooperative. speech incr in rate, amount. nml loudness, deccr latency. thoughts disorganized, tangential. affect labile, hyper-intense. mood all right. denies SI/SIBI/HI/AVH. Assessment & Plan Assessment & Plan (1) Bipolar disorder: Status: Acute Code(s): F31.9 - Bipolar disorder, unspecified (2) Homeless single person: Status: Acute Code(s): Z59.00 - Homelessness unspecified (3) Opioid use disorder: Status: Acute Code(s): F11.90 - Opioid use, unspecified, uncomplicated (4) Cocaine use disorder: Status: Acute Code(s): F14.10 - Cocaine abuse, uncomplicated Plan supportive care through cocaine withdrawal. continue methadone maintenance; otherwise supportive care through any fentanyl withdrawal. DC caplyta as not obtainable. increase abilify to 5 mg daily. otherwise continue outpt regimen. Patient educated on: diagnosis, medication risk/benefits and substance abuse Reason for continued inpatient stay Substantial Risk for: inability to function Statement Statement: I have reviewed the history and physical and performed a pertinent examination on my patient. No changes have occurred unless specified. If the History and Physical was not performed prior to admission, the Hospitalist's service will be consulted for completing the admission physical. Time Spent With Patient Time: Total time managing care of this patient today __55__ minutes.
[2024-02-24 20:00] VITALS: BP 136/67; PULSE 80; RESP 18; TEMP 37.4; O2SAT 98
[2024-02-24] MEDS: Milk of Magnesia 30 ML ORAL.SUSP PO (20:08)
[2024-02-24] MEDS: Melatonin 3 MG TABLET 6 MG PO (20:08)
[2024-02-24] MEDS: Mirtazapine 30 MG TABLET PO (20:09)
[2024-02-24] MEDS: QUEtiapine Fumarate 50 MG TABLET PO (20:09)
[2024-02-25 07:33] VITALS: BP 95/52; PULSE 64; RESP 14; TEMP 36.8; O2SAT 97
[2024-02-25] MEDS: methADONE HCl 20 MG/2 ML ORAL.CONC 70 MG PO (07:55)
[2024-02-25] MEDS: ARIPiprazole 5 MG TABLET PO (09:03)
[2024-02-25] MEDS: Sertraline HCL 50 MG TABLET PO (09:03)
[2024-02-25] MEDS: OXcarbazepine 300 MG TABLET PO ×2 (09:03→20:31)
[2024-02-25] MEDS: LORazepam 1 MG TABLET PO (09:21)
[2024-02-25] MEDS: hydrOXYzine HCL 50 MG TABLET PO ×2 (09:21→16:15)
[2024-02-25] MEDS: Ondansetron ODT 4 MG TAB.RAPDIS TRANSLINGU (13:15)
[2024-02-25] MEDS: LORazepam 0.5 MG TABLET PO (16:15)
[2024-02-25 20:00] VITALS: BP 130/69; PULSE 74; RESP 16; TEMP 36.9; O2SAT 99
[2024-02-25] MEDS: Melatonin 3 MG TABLET 6 MG PO (20:30)
[2024-02-25] MEDS: Mirtazapine 30 MG TABLET PO (20:31)
[2024-02-25] MEDS: QUEtiapine Fumarate 50 MG TABLET PO (20:34)
--- NOTE | 2024-02-25 22:14 | P.PNPSI_ITS ---
Subjective Subjective Date of Service: 02/25/24 Reason For Visit: SI Interim History: far more calm and organized today than yesterday. not focused on delusional material. c/o scratching sound in her ears, clear discharge from her ears. wants to keep meds as they are for now. per staff, dep anx 9. PRN ativan and atarax. self-dialoguing slept about 8 hours. appeared to be unrestful sleep, with much tossing and turning. Mental Status Exam Mental Status Exam Narrative: Pt is alert and oriented; behavior is guarded; dressed in casual attire; mood is described as good ; eye contact appropriate; Speech is normal rate, volume and not pressured; thought process is organized; Thought content is on somatic Sx; no SI/HI/VH/AH expressed. Diagnostics Vital Signs (24Hr): Vital Signs - 24 hr 02/25/24 07:33 02/25/24 20:00 Temperature 98.2 F 98.4 F Pulse Rate 64 74 Respiratory Rate 14 16 Blood Pressure 95/52 L 130/69 Pulse Oximetry 97 99 Oxygen Delivery Method Room Air Room Air BMI result Body Mass Index 19.6 Labs 02/20/24 23:02 02/20/24 23:02 Medications Medications Current Medications Acetaminophen (Acetaminophen 325 Mg Tablet) 650 mg PO Q6H PRN PRN Reason: Headache/Pain Mild Scale (1-3) Al Hydroxide/Mg Hydroxide (Magnesium Hydrox/Alum Hydrox 30 Ml Oral.Susp) 30 ml PO Q6H PRN PRN Reason: Heartburn/Nausea Aripiprazole (Aripiprazole 5 Mg Tablet) 5 mg PO DAILY [facility] Last Admin: 02/25/24 09:03 Dose: 5 mg Hydroxyzine HCl (Hydroxyzine Hcl 50 Mg Tablet) 50 mg PO Q6H PRN PRN Reason: Anxiety Last Admin: 02/25/24 16:15 Dose: 50 mg Lorazepam (Lorazepam 0.5 Mg Tablet) 0.5 mg PO Q8H PRN PRN Reason: Anxiety Last Admin: 02/25/24 16:15 Dose: 0.5 mg Magnesium Hydroxide (Milk Of Magnesia 30 Ml Oral.Susp) 30 ml PO DAILY PRN PRN Reason: Constipation Last Admin: 02/24/24 20:08 Dose: 30 ml Melatonin (Melatonin 3 Mg Tablet) 6 mg PO BEDTIME [facility] Last Admin: 02/25/24 20:30 Dose: 6 mg Methadone HCl (Methadone Hcl 20 Mg/2 Ml Oral.Conc) 70 mg PO DAILY [facility] Last Admin: 02/25/24 07:55 Dose: 70 mg Mirtazapine (Mirtazapine 30 Mg Tablet) 30 mg PO BEDTIME [facility] Last Admin: 02/25/24 20:31 Dose: 30 mg Ondansetron HCl (Ondansetron Odt 4 Mg Tab.Rapdis) 4 mg TRANSLINGU Q6H PRN PRN Reason: Nausea and Vomiting Last Admin: 02/25/24 13:15 Dose: 4 mg Oxcarbazepine (Oxcarbazepine 300 Mg Tablet) 300 mg PO BID [facility] Last Admin: 02/25/24 20:31 Dose: 300 mg Quetiapine Fumarate (Quetiapine Fumarate 50 Mg Tablet) 50 mg PO Q4H PRN PRN Reason: Anxiety Last Admin: 02/25/24 20:34 Dose: 50 mg Sertraline HCl (Sertraline Hcl 50 Mg Tablet) 50 mg PO DAILY [facility] Last Admin: 02/25/24 09:03 Dose: 50 mg Trazodone HCl (Trazodone Hcl 50 Mg Tablet) 50 mg PO BEDTIME PRN PRN Reason: Insomnia Allergies Allergies Allergy/AdvReac Type Severity Reaction Status Date / Time No Known Allergies Allergy Verified 02/20/24 22:11 Assessment & Plan Assessment & Plan (1) Bipolar disorder: Status: Acute Code(s): F31.9 - Bipolar disorder, unspecified (2) Homeless single person: Status: Acute Code(s): Z59.00 - Homelessness unspecified (3) Opioid use disorder: Status: Acute Code(s): F11.90 - Opioid use, unspecified, uncomplicated (4) Cocaine use disorder: Status: Acute Code(s): F14.10 - Cocaine abuse, uncomplicated Plan 02/23: supportive care through cocaine withdrawal. continue methadone maintenance; otherwise supportive care through any fentanyl withdrawal. DC caplyta as not obtainable. increase abilify to 5 mg daily. otherwise continue outpt regimen. 02/24: much improved from yesterday, less pressured, more organized, not focused on delusional material. c/o scratching sound in her ears and clear drainage B/L, asking for otoscopic eval. will request hospitalist consult. otherwise continue current mgmt, will attempt to convince pt to increase abilify dosing. Reason for continued inpatient stay Substantial Risk for: inability to function and rapid decompensation Time Spent With Patient Time: Total time managing care of this patient today __25__ minutes.
[2024-02-26] MEDS: hydrOXYzine HCL 50 MG TABLET PO ×2 (04:34→19:23)
[2024-02-26] MEDS: LORazepam 0.5 MG TABLET PO ×2 (04:34→14:37)
[2024-02-26 07:00] VITALS: BMI 20.4
[2024-02-26 07:50] VITALS: BP 110/60; PULSE 68; RESP 14; TEMP 37.2; O2SAT 96
[2024-02-26] MEDS: methADONE HCl 20 MG/2 ML ORAL.CONC 70 MG PO (08:05)
[2024-02-26] MEDS: Sertraline HCL 50 MG TABLET PO (08:42)
[2024-02-26] MEDS: OXcarbazepine 300 MG TABLET PO ×2 (08:42→20:46)
[2024-02-26] MEDS: ARIPiprazole 5 MG TABLET PO (08:42)
--- NOTE | 2024-02-26 15:21 | PM.EVENT ---
Event Note Date of Service: 02/26/24 Event Note: Pt is a 38 female with a PMH significant for hepatitis C, polysubstance use disorder with IVDU, anxiety, and depression who is admitted to [facility] with medical consult for bilateral ear fullness. Pt apparently has been complaining of a ?ribr-u-pxitbe shawna sound in her ears and clear drainage. Pt reports has been experiencing symptoms for the past few months. Pt reports her ears bilaterally feel ?clogged? and feels like there is ?crusty stuff? in them. Pt denies any ear pain, muffled hearing, or acute hearing loss. Pt appears somatically oriented and worries and worried there is something wrong with her ears. States her son has tubes in her ears, and has ?problems with swimmer's ear? and her brother son has an unknown hearing issue. Reports she has seen PCP with negative workup in the past, but never has seen ENT. Pt previously seen for similar complaints earlier in the month with negative workup. Physical exam reveals area of superficial excoriation right superior auricle, likely secondary to scratching with fingernail. Otherwise exam negative. External auditory canals bilaterally clear and nonerythematous with minimal amount of cerumen. Tympanic membranes clear, nonbulging, nonerythematous, without evidence of otitis media. No evidence of otitis externa. Will treat symptomatically with Sudafed x5 days. Otherwise no indication for additional workup or treatment at this time. Pt can follow up outpatient with PCP and/or ENT for additional workup if symptoms persist. Attempted to reassure pt that there was no acute infection at this time. Time Spent With Patient Time: Total time managing care of this patient today ____ minutes.
--- NOTE | 2024-02-26 16:12 | P.PNPSI_ITS ---
Subjective Subjective Date of Service: 02/26/24 Reason For Visit: SI Interim History: calm, cooperative. remains more organized and reality-based than yesterday. again not seeming to want to change medications, asking for letter of hospitalization to be sent to [facility]. no other requests or complaints. does not seem to have a plan for discharge. does not want to return to [place]. per staff, taking meds. in bed. misses her kids. fearful. slept all NOC. Mental Status Exam Mental Status Exam Narrative: Pt is alert and oriented; behavior is guarded; dressed in casual attire; mood is described as good; eye contact appropriate; Speech is normal rate, volume and not pressured; thought process is organized; Thought content is on legal matters; no SI/HI/VH/AH expressed. Diagnostics Vital Signs (24Hr): Vital Signs - 24 hr 02/25/24 20:00 02/26/24 07:50 Temperature 98.4 F 98.9 F Pulse Rate 74 68 Respiratory Rate 16 14 Blood Pressure 130/69 110/60 Pulse Oximetry 99 96 Oxygen Delivery Method Room Air Room Air BMI result Body Mass Index 20.4 Labs 02/20/24 23:02 02/20/24 23:02 Medications Medications Current Medications Acetaminophen (Acetaminophen 325 Mg Tablet) 650 mg PO Q6H PRN PRN Reason: Headache/Pain Mild Scale (1-3) Al Hydroxide/Mg Hydroxide (Magnesium Hydrox/Alum Hydrox 30 Ml Oral.Susp) 30 ml PO Q6H PRN PRN Reason: Heartburn/Nausea Aripiprazole (Aripiprazole 5 Mg Tablet) 5 mg PO DAILY [facility] Last Admin: 02/26/24 08:42 Dose: 5 mg Hydroxyzine HCl (Hydroxyzine Hcl 50 Mg Tablet) 50 mg PO Q6H PRN PRN Reason: Anxiety Last Admin: 02/26/24 04:34 Dose: 50 mg Lorazepam (Lorazepam 0.5 Mg Tablet) 0.5 mg PO Q8H PRN PRN Reason: Anxiety Last Admin: 02/26/24 14:37 Dose: 0.5 mg Magnesium Hydroxide (Milk Of Magnesia 30 Ml Oral.Susp) 30 ml PO DAILY PRN PRN Reason: Constipation Last Admin: 02/24/24 20:08 Dose: 30 ml Melatonin (Melatonin 3 Mg Tablet) 6 mg PO BEDTIME [facility] Last Admin: 02/25/24 20:30 Dose: 6 mg Methadone HCl (Methadone Hcl 20 Mg/2 Ml Oral.Conc) 70 mg PO DAILY [facility] Last Admin: 02/26/24 08:05 Dose: 70 mg Mirtazapine (Mirtazapine 30 Mg Tablet) 30 mg PO BEDTIME [facility] Last Admin: 02/25/24 20:31 Dose: 30 mg Ondansetron HCl (Ondansetron Odt 4 Mg Tab.Rapdis) 4 mg TRANSLINGU Q6H PRN PRN Reason: Nausea and Vomiting Last Admin: 02/25/24 13:15 Dose: 4 mg Oxcarbazepine (Oxcarbazepine 300 Mg Tablet) 300 mg PO BID [facility] Last Admin: 02/26/24 08:42 Dose: 300 mg Pseudoephedrine HCl (Pseudoephedrine Hcl 30 Mg Tablet) 30 mg PO Q6H PRN PRN Reason: Ear Fullness/Congestion Stop: 03/02/24 15:17 Quetiapine Fumarate (Quetiapine Fumarate 50 Mg Tablet) 50 mg PO Q4H PRN PRN Reason: Anxiety Last Admin: 02/25/24 20:34 Dose: 50 mg Sertraline HCl (Sertraline Hcl 50 Mg Tablet) 50 mg PO DAILY [facility] Last Admin: 02/26/24 08:42 Dose: 50 mg Trazodone HCl (Trazodone Hcl 50 Mg Tablet) 50 mg PO BEDTIME PRN PRN Reason: Insomnia Allergies Allergies Allergy/AdvReac Type Severity Reaction Status Date / Time No Known Allergies Allergy Verified 02/20/24 22:11 Assessment & Plan Assessment & Plan (1) Bipolar disorder: Status: Acute Code(s): F31.9 - Bipolar disorder, unspecified (2) Homeless single person: Status: Acute Code(s): Z59.00 - Homelessness unspecified (3) Opioid use disorder: Status: Acute Code(s): F11.90 - Opioid use, unspecified, uncomplicated (4) Cocaine use disorder: Status: Acute Code(s): F14.10 - Cocaine abuse, uncomplicated Plan 02/23: supportive care through cocaine withdrawal. continue methadone maintenance; otherwise supportive care through any fentanyl withdrawal. DC caplyta as not obtainable. increase abilify to 5 mg daily. otherwise continue outpt regimen. 02/24: much improved from yesterday, less pressured, more organized, not focused on delusional material. c/o scratching sound in her ears and clear drainage B/L, asking for otoscopic eval. will request hospitalist consult. otherwise continue current mgmt, will attempt to convince pt to increase abilify dosing. 02/25: remains much improved from admission, and also not supportive of increase in medications. does not want to return to [place], aware little option other than [facility] for discharge. does not seem to have a discharge plan. requested letter of hospitalization be sent to [facility]. Reason for continued inpatient stay Substantial Risk for: inability to function and rapid decompensation Time Spent With Patient Time: Total time managing care of this patient today __25__ minutes.
[2024-02-26] MEDS: Acetaminophen 325 MG TABLET 650 MG PO (19:23)
[2024-02-26 19:30] VITALS: BP 124/66; PULSE 74; RESP 16; TEMP 38; O2SAT 97
[2024-02-26] MEDS: Mirtazapine 30 MG TABLET PO (20:46)
[2024-02-26] MEDS: QUEtiapine Fumarate 50 MG TABLET PO (20:46)
[2024-02-26] MEDS: Melatonin 3 MG TABLET 6 MG PO (20:46)
[2024-02-26] MEDS: Pseudoephedrine HCL 30 MG TABLET PO (21:14)
[2024-02-27] MEDS: LORazepam 0.5 MG TABLET PO ×2 (06:16→14:14)
[2024-02-27 07:36] VITALS: BP 124/65; PULSE 72; RESP 16; TEMP 36.8; O2SAT 97
[2024-02-27] MEDS: methADONE HCl 20 MG/2 ML ORAL.CONC 70 MG PO (08:27)
[2024-02-27] MEDS: Sertraline HCL 50 MG TABLET PO (09:20)
[2024-02-27] MEDS: ARIPiprazole 5 MG TABLET PO (09:20)
[2024-02-27] MEDS: OXcarbazepine 300 MG TABLET PO ×2 (09:20→20:06)
[2024-02-27] MEDS: hydrOXYzine HCL 50 MG TABLET PO ×2 (11:46→16:36)
--- NOTE | 2024-02-27 16:09 | P.PNPSI_ITS ---
Subjective Subjective Date of Service: 02/27/24 Reason For Visit: SI Interim History: calm, cooperative. reports she is sleeping well. still c/o scratching noise and ear drainage. aware of opinion of hospitalist and medications ordered. discussed rapid thoughts, agreeable to increase abilify to 10 mg as of tomorrow. per staff, taking medications. visile. pleasant, cooperative. +depression, racing thoughts. Mental Status Exam Mental Status Exam Narrative: Pt is alert and oriented; behavior is guarded; dressed in casual attire; mood is described as good; eye contact appropriate; Speech is normal rate, volume and not pressured; thought process is organized; Thought content is on abnml ear sensation and drainage; no SI/HI/VH/AH expressed. Diagnostics Vital Signs (24Hr): Vital Signs - 24 hr 02/26/24 19:30 02/27/24 07:36 Temperature 100.4 F 98.3 F Pulse Rate 74 72 Respiratory Rate 16 16 Blood Pressure 124/66 124/65 Pulse Oximetry 97 97 Oxygen Delivery Method Room Air Room Air BMI result Body Mass Index 20.4 Labs 02/20/24 23:02 02/20/24 23:02 Medications Medications Current Medications Acetaminophen (Acetaminophen 325 Mg Tablet) 650 mg PO Q6H PRN PRN Reason: Headache/Pain Mild Scale (1-3) Last Admin: 02/26/24 19:23 Dose: 650 mg Al Hydroxide/Mg Hydroxide (Magnesium Hydrox/Alum Hydrox 30 Ml Oral.Susp) 30 ml PO Q6H PRN PRN Reason: Heartburn/Nausea Aripiprazole (Aripiprazole 10 Mg Tablet) 10 mg PO DAILY COUNTS [facility]CLUDE 234 BEDS AT [facility] Fluticasone Propionate (Fluticasone Propionate Nasal 16 Gm [place]) 2 spray NOSTRIL-B DAILY COUNTS INCLUDE 234 BEDS AT THE [facility] Last Admin: 02/27/24 09:20 Dose: Not Given Hydroxyzine HCl (Hydroxyzine Hcl 50 Mg Tablet) 50 mg PO Q6H PRN PRN Reason: Anxiety Last Admin: 02/27/24 11:46 Dose: 50 mg Lorazepam (Lorazepam 0.5 Mg Tablet) 0.5 mg PO Q8H PRN PRN Reason: Anxiety Last Admin: 02/27/24 14:14 Dose: 0.5 mg Magnesium Hydroxide (Milk Of Magnesia 30 Ml Oral.Susp) 30 ml PO DAILY PRN PRN Reason: Constipation Last Admin: 02/24/24 20:08 Dose: 30 ml Melatonin (Melatonin 3 Mg Tablet) 6 mg PO BEDTIME COUNTS [facility]CLUDE 234 BEDS AT THE [facility] Last Admin: 02/26/24 20:46 Dose: 6 mg Methadone HCl (Methadone Hcl 20 Mg/2 Ml Oral.Conc) 70 mg PO DAILY [facility]S [facility]CLUDE 234 BEDS AT THE [facility] Last Admin: 02/27/24 08:27 Dose: 70 mg Mirtazapine (Mirtazapine 30 Mg Tablet) 30 mg PO BEDTIME COUNTS INCLUDE 234 BEDS AT THE [facility] Last Admin: 02/26/24 20:46 Dose: 30 mg Ondansetron HCl (Ondansetron Odt 4 Mg Tab.Rapdis) 4 mg TRANSLINGU Q6H PRN PRN Reason: Nausea and Vomiting Last Admin: 02/25/24 13:15 Dose: 4 mg Oxcarbazepine (Oxcarbazepine 300 Mg Tablet) 300 mg PO BID [facility]S [facility]CLUDE 234 BEDS AT THE [facility] Last Admin: 02/27/24 09:20 Dose: 300 mg Pseudoephedrine HCl (Pseudoephedrine Hcl 30 Mg Tablet) 30 mg PO Q6H PRN PRN Reason: Ear Fullness/Congestion Stop: 03/02/24 15:17 Last Admin: 02/26/24 21:14 Dose: 30 mg Quetiapine Fumarate (Quetiapine Fumarate 50 Mg Tablet) 50 mg PO Q4H PRN PRN Reason: Anxiety Last Admin: 02/26/24 20:46 Dose: 50 mg Sertraline HCl (Sertraline Hcl 50 Mg Tablet) 50 mg PO DAILY [facility]CLUDE 234 BEDS AT THE [facility] Last Admin: 02/27/24 09:20 Dose: 50 mg Trazodone HCl (Trazodone Hcl 50 Mg Tablet) 50 mg PO BEDTIME PRN PRN Reason: Insomnia Allergies Allergies Allergy/AdvReac Type Severity Reaction Status Date / Time No Known Allergies Allergy Verified 02/20/24 22:11 Assessment & Plan Assessment & Plan (1) Bipolar disorder: Status: Acute Code(s): F31.9 - Bipolar disorder, unspecified (2) Homeless single person: Status: Acute Code(s): Z59.00 - Homelessness unspecified (3) Opioid use disorder: Status: Acute Code(s): F11.90 - Opioid use, unspecified, uncomplicated (4) Cocaine use disorder: Status: Acute Code(s): F14.10 - Cocaine abuse, uncomplicated Plan 02/23: supportive care through cocaine withdrawal. continue methadone maintenance; otherwise supportive care through any fentanyl withdrawal. DC caplyta as not obtainable. increase abilify to 5 mg daily. otherwise continue outpt regimen. 02/24: much improved from yesterday, less pressured, more organized, not focused on delusional material. c/o scratching sound in her ears and clear drainage B/L, asking for otoscopic eval. will request hospitalist consult. otherwise continue current mgmt, will attempt to convince pt to increase abilify dosing. 02/25: remains much improved from admission, and also not supportive of increase in medications. does not want to return to [place], aware little option other than retirement for discharge. does not seem to have a discharge plan. requested letter of hospitalization be sent to [place] [facility]. 02/26: appreciate hospitalist eval and recs. pt remains focused on that issue. agreeable to increase abilify tomorrow morning to 10 mg daily for racing thoughts. otherwise continue current mgmt. no discharge plans, team considering friday discharge. Reason for continued inpatient stay Substantial Risk for: inability to function and rapid decompensation Time Spent With Patient Time: Total time managing care of this patient today __25__ minutes.
[2024-02-27] MEDS: QUEtiapine Fumarate 50 MG TABLET PO ×2 (16:36→20:37)
[2024-02-27 19:28] VITALS: BP 109/59; PULSE 81; RESP 18; TEMP 37.1; O2SAT 95
[2024-02-27] MEDS: Mirtazapine 30 MG TABLET PO (20:06)
[2024-02-27] MEDS: Melatonin 3 MG TABLET 6 MG PO (20:06)
[2024-02-27] MEDS: Pseudoephedrine HCL 30 MG TABLET PO (20:06)
[2024-02-27] MEDS: Milk of Magnesia 30 ML ORAL.SUSP PO (20:32)
[2024-02-28] MEDS: hydrOXYzine HCL 50 MG TABLET PO ×3 (07:30→20:39)
[2024-02-28 07:46] VITALS: BP 122/84; PULSE 81; RESP 16; TEMP 36.6; O2SAT 96
[2024-02-28] MEDS: methADONE HCl 20 MG/2 ML ORAL.CONC 70 MG PO (08:04)
[2024-02-28] MEDS: ARIPiprazole 10 MG TABLET PO (08:44)
[2024-02-28] MEDS: OXcarbazepine 300 MG TABLET PO ×2 (08:44→20:40)
[2024-02-28] MEDS: Sertraline HCL 50 MG TABLET PO (08:44)
[2024-02-28] MEDS: LORazepam 0.5 MG TABLET PO ×2 (08:48→19:37)
[2024-02-28] MEDS: Pseudoephedrine HCL 30 MG TABLET PO ×3 (08:48→20:39)
[2024-02-28] MEDS: QUEtiapine Fumarate 50 MG TABLET PO ×2 (13:26→20:40)
--- NOTE | 2024-02-28 14:24 | HO.PSYCHPN ---
Subjective Subjective Date of Service: 02/28/24 Reason For Visit: SI Subjective Notes: Conditional Voluntary Interim History: The nursing staff reported the patient had been paranoid, self dialogue in but in the last day she had been much better. She had been fully compliant with treatment. She slept all night. On interview the patient denies new symptoms said that she is doing fine. Mental Status Exam Mental Status Exam Patient Appearance: Appropriate Patient Orientation: Person and Situation Level of Consciousness: Awake and Appropriate Patient Behavior: Guarded and Passive Mood Description: Withdrawn Patient Cognition Impaired: Yes Ability to Follow Directions: Good Speech Pattern: Clear Hallucinations: None Delusions: Paranoid Ideation Thought Process: Distracted and Slowed Thinking Thought Content: positive for [place] and positive for Poverty of Content Judgement: Poor Diagnostics Vital Signs (24Hr): Vital Signs - 24 hr 02/27/24 19:28 02/28/24 07:46 Temperature 98.7 F 97.8 F Pulse Rate 81 81 Respiratory Rate 18 16 Blood Pressure 109/59 L 122/84 Pulse Oximetry 95 96 Oxygen Delivery Method Room Air Room Air BMI result Body Mass Index 20.4 Labs 02/20/24 23:02 02/20/24 23:02 Medications Medications Current Medications Acetaminophen (Acetaminophen 325 Mg Tablet) 650 mg PO Q6H PRN PRN Reason: Headache/Pain Mild Scale (1-3) Last Admin: 02/26/24 19:23 Dose: 650 mg Al Hydroxide/Mg Hydroxide (Magnesium Hydrox/Alum Hydrox 30 Ml Oral.Susp) 30 ml PO Q6H PRN PRN Reason: Heartburn/Nausea Aripiprazole (Aripiprazole 10 Mg Tablet) 10 mg PO DAILY [facility] Last Admin: 02/28/24 08:44 Dose: 10 mg Fluticasone Propionate (Fluticasone Propionate Nasal 16 Gm [place]) 2 spray NOSTRIL-B DAILY [facility] Last Admin: 02/28/24 09:53 Dose: Not Given Hydroxyzine HCl (Hydroxyzine Hcl 50 Mg Tablet) 50 mg PO Q6H PRN PRN Reason: Anxiety Last Admin: 02/28/24 13:30 Dose: 50 mg Lorazepam (Lorazepam 0.5 Mg Tablet) 0.5 mg PO Q8H PRN PRN Reason: Anxiety Last Admin: 02/28/24 08:48 Dose: 0.5 mg Magnesium Hydroxide (Milk Of Magnesia 30 Ml Oral.Susp) 30 ml PO DAILY PRN PRN Reason: Constipation Last Admin: 02/27/24 20:32 Dose: 30 ml Melatonin (Melatonin 3 Mg Tablet) 6 mg PO BEDTIME [facility] Last Admin: 02/27/24 20:06 Dose: 6 mg Methadone HCl (Methadone Hcl 20 Mg/2 Ml Oral.Conc) 70 mg PO DAILY [facility] Last Admin: 02/28/24 08:04 Dose: 70 mg Mirtazapine (Mirtazapine 30 Mg Tablet) 30 mg PO BEDTIME [facility] Last Admin: 02/27/24 20:06 Dose: 30 mg Ondansetron HCl (Ondansetron Odt 4 Mg Tab.Rapdis) 4 mg TRANSLINGU Q6H PRN PRN Reason: Nausea and Vomiting Last Admin: 02/25/24 13:15 Dose: 4 mg Oxcarbazepine (Oxcarbazepine 300 Mg Tablet) 300 mg PO BID [facility] Last Admin: 02/28/24 08:44 Dose: 300 mg Pseudoephedrine HCl (Pseudoephedrine Hcl 30 Mg Tablet) 30 mg PO Q6H PRN PRN Reason: Ear Fullness/Congestion Stop: 03/02/24 15:17 Last Admin: 02/28/24 08:48 Dose: 30 mg Quetiapine Fumarate (Quetiapine Fumarate 50 Mg Tablet) 50 mg PO Q4H PRN PRN Reason: Anxiety Last Admin: 02/28/24 13:26 Dose: 50 mg Sertraline HCl (Sertraline Hcl 50 Mg Tablet) 50 mg PO DAILY [facility] Last Admin: 02/28/24 08:44 Dose: 50 mg Trazodone HCl (Trazodone Hcl 50 Mg Tablet) 50 mg PO BEDTIME PRN PRN Reason: Insomnia Allergies Allergies Allergy/AdvReac Type Severity Reaction Status Date / Time No Known Allergies Allergy Verified 02/20/24 22:11 Assessment & Plan Assessment & Plan (1) Bipolar disorder: Status: Acute Code(s): F31.9 - Bipolar disorder, unspecified (2) Homeless single person: Status: Acute Code(s): Z59.00 - Homelessness unspecified (3) Opioid use disorder: Status: Acute Code(s): F11.90 - Opioid use, unspecified, uncomplicated (4) Cocaine use disorder: Status: Acute Code(s): F14.10 - Cocaine abuse, uncomplicated Plan 02/23: supportive care through cocaine withdrawal. continue methadone maintenance; otherwise supportive care through any fentanyl withdrawal. DC caplyta as not obtainable. increase abilify to 5 mg daily. otherwise continue outpt regimen. 02/24: much improved from yesterday, less pressured, more organized, not focused on delusional material. c/o scratching sound in her ears and clear drainage B/L, asking for otoscopic eval. will request hospitalist consult. otherwise continue current mgmt, will attempt to convince pt to increase abilify dosing. 02/25: remains much improved from admission, and also not supportive of increase in medications. does not want to return to [place], aware little option other than skilled nursing for discharge. does not seem to have a discharge plan. requested letter of hospitalization be sent to [place] [facility]. 02/26: appreciate hospitalist eval and recs. pt remains focused on that issue. agreeable to increase abilify tomorrow morning to 10 mg daily for racing thoughts. otherwise continue current mgmt. no discharge plans, team considering friday discharge. 02/27 keep same treatment Reason for continued inpatient stay Substantial Risk for: inability to function, rapid decompensation and med/psych decompensation Time Spent With Patient Time: Total time managing care of this patient today __20__ minutes.
[2024-02-28 20:30] VITALS: BP 154/87; PULSE 82; RESP 16; TEMP 37.7; O2SAT 95
[2024-02-28] MEDS: Mirtazapine 30 MG TABLET PO (20:39)
[2024-02-28] MEDS: Melatonin 3 MG TABLET 6 MG PO (20:40)
[2024-02-29 07:34] VITALS: BP 110/57; PULSE 74; RESP 14; TEMP 37.1; O2SAT 97
[2024-02-29] MEDS: methADONE HCl 20 MG/2 ML ORAL.CONC 70 MG PO (08:25)
[2024-02-29] MEDS: Sertraline HCL 50 MG TABLET PO (08:50)
[2024-02-29] MEDS: LORazepam 0.5 MG TABLET PO ×2 (08:50→20:12)
[2024-02-29] MEDS: ARIPiprazole 10 MG TABLET PO (08:51)
[2024-02-29] MEDS: Pseudoephedrine HCL 30 MG TABLET PO ×2 (08:51→20:31)
[2024-02-29] MEDS: OXcarbazepine 300 MG TABLET PO ×2 (08:51→20:03)
[2024-02-29] MEDS: QUEtiapine Fumarate 50 MG TABLET PO ×2 (08:51→12:52)
[2024-02-29] MEDS: hydrOXYzine HCL 50 MG TABLET PO ×2 (08:51→20:12)
--- NOTE | 2024-02-29 13:39 | HO.PSYCHPN ---
Subjective Subjective Date of Service: 02/29/24 Reason For Visit: SI Subjective Notes: Conditional Voluntary Interim History: The nursing staff reported the patient was asking for HIV testing, suspicious about her roommate she was been seen labile and crying. Her mood has been up and down as according to her and she slept only 4 hours. On interview the patient requested some cream for a lesion on her toe. We are going to out some Eucerin. Mental Status Exam Mental Status Exam Patient Appearance: Appropriate Patient Orientation: Person Level of Consciousness: Awake Patient Behavior: Guarded Mood Description: Withdrawn Affect Description: Constricted Patient Cognition Impaired: Yes Ability to Follow Directions: Good Speech Pattern: Clear Hallucinations: Auditory Delusions: Paranoid Ideation Thought Process: Distracted and Slowed Thinking Thought Content: positive for [place] and positive for Poverty of Content Judgement: Poor Diagnostics Vital Signs (24Hr): Vital Signs - 24 hr 02/28/24 20:30 02/29/24 07:34 Temperature 99.8 F 98.7 F Pulse Rate 82 74 Respiratory Rate 16 14 Blood Pressure 154/87 H 110/57 L Pulse Oximetry 95 97 Oxygen Delivery Method Room Air Room Air BMI result Body Mass Index 20.4 Labs 02/20/24 23:02 02/20/24 23:02 Medications Medications Current Medications Acetaminophen (Acetaminophen 325 Mg Tablet) 650 mg PO Q6H PRN PRN Reason: Headache/Pain Mild Scale (1-3) Last Admin: 02/26/24 19:23 Dose: 650 mg Al Hydroxide/Mg Hydroxide (Magnesium Hydrox/Alum Hydrox 30 Ml Oral.Susp) 30 ml PO Q6H PRN PRN Reason: Heartburn/Nausea Aripiprazole (Aripiprazole 10 Mg Tablet) 10 mg PO DAILY [facility] Last Admin: 02/29/24 08:51 Dose: 10 mg Fluticasone Propionate (Fluticasone Propionate Nasal 16 Gm [place]) 2 spray NOSTRIL-B DAILY [facility] Last Admin: 02/29/24 08:51 Dose: Not Given Hydroxyzine HCl (Hydroxyzine Hcl 50 Mg Tablet) 50 mg PO Q6H PRN PRN Reason: Anxiety Last Admin: 02/29/24 08:51 Dose: 50 mg Lorazepam (Lorazepam 0.5 Mg Tablet) 0.5 mg PO Q8H PRN PRN Reason: Anxiety Last Admin: 02/29/24 08:50 Dose: 0.5 mg Magnesium Hydroxide (Milk Of Magnesia 30 Ml Oral.Susp) 30 ml PO DAILY PRN PRN Reason: Constipation Last Admin: 02/27/24 20:32 Dose: 30 ml Melatonin (Melatonin 3 Mg Tablet) 6 mg PO BEDTIME [facility] Last Admin: 02/28/24 20:40 Dose: 6 mg Methadone HCl (Methadone Hcl 20 Mg/2 Ml Oral.Conc) 70 mg PO DAILY [facility] Last Admin: 02/29/24 08:25 Dose: 70 mg Mirtazapine (Mirtazapine 30 Mg Tablet) 30 mg PO BEDTIME [facility] Last Admin: 02/28/24 20:39 Dose: 30 mg Ondansetron HCl (Ondansetron Odt 4 Mg Tab.Rapdis) 4 mg TRANSLINGU Q6H PRN PRN Reason: Nausea and Vomiting Last Admin: 02/25/24 13:15 Dose: 4 mg Oxcarbazepine (Oxcarbazepine 300 Mg Tablet) 300 mg PO BID [facility] Last Admin: 02/29/24 08:51 Dose: 300 mg Pseudoephedrine HCl (Pseudoephedrine Hcl 30 Mg Tablet) 30 mg PO Q6H PRN PRN Reason: Ear Fullness/Congestion Stop: 03/02/24 15:17 Last Admin: 02/29/24 08:51 Dose: 30 mg Quetiapine Fumarate (Quetiapine Fumarate 50 Mg Tablet) 50 mg PO Q4H PRN PRN Reason: Anxiety Last Admin: 02/29/24 12:52 Dose: 50 mg Sertraline HCl (Sertraline Hcl 50 Mg Tablet) 50 mg PO DAILY [facility] Last Admin: 02/29/24 08:50 Dose: 50 mg Trazodone HCl (Trazodone Hcl 50 Mg Tablet) 50 mg PO BEDTIME PRN PRN Reason: Insomnia Allergies Allergies Allergy/AdvReac Type Severity Reaction Status Date / Time No Known Allergies Allergy Verified 02/20/24 22:11 Assessment & Plan Assessment & Plan (1) Bipolar disorder: Status: Acute Code(s): F31.9 - Bipolar disorder, unspecified (2) Homeless single person: Status: Acute Code(s): Z59.00 - Homelessness unspecified (3) Opioid use disorder: Status: Acute Code(s): F11.90 - Opioid use, unspecified, uncomplicated (4) Cocaine use disorder: Status: Acute Code(s): F14.10 - Cocaine abuse, uncomplicated Plan 02/23: supportive care through cocaine withdrawal. continue methadone maintenance; otherwise supportive care through any fentanyl withdrawal. DC caplyta as not obtainable. increase abilify to 5 mg daily. otherwise continue outpt regimen. 02/24: much improved from yesterday, less pressured, more organized, not focused on delusional material. c/o scratching sound in her ears and clear drainage B/L, asking for otoscopic eval. will request hospitalist consult. otherwise continue current mgmt, will attempt to convince pt to increase abilify dosing. 02/25: remains much improved from admission, and also not supportive of increase in medications. does not want to return to [place], aware little option other than alf for discharge. does not seem to have a discharge plan. requested letter of hospitalization be sent to [place] [facility]. 02/26: appreciate hospitalist eval and recs. pt remains focused on that issue. agreeable to increase abilify tomorrow morning to 10 mg daily for racing thoughts. otherwise continue current mgmt. no discharge plans, team considering friday discharge. 02/27 keep same treatment 02/28 keep same treatment. Reason for continued inpatient stay Substantial Risk for: inability to function, rapid decompensation and med/psych decompensation Time Spent With Patient Time: Total time managing care of this patient today __20__ minutes.
[2024-02-29 19:59] VITALS: BP 122/68; PULSE 75; RESP 16; TEMP 36.9; O2SAT 98
[2024-02-29] MEDS: Melatonin 3 MG TABLET 6 MG PO (20:03)
[2024-02-29] MEDS: Mineral Oil/Petrolatum,White 106 GM Tube 1 APPL TOPICAL (20:04)
[2024-02-29] MEDS: Mirtazapine 30 MG TABLET PO (20:04)
[2024-03-01] MEDS: hydrOXYzine HCL 50 MG TABLET PO ×3 (06:12→20:35)
[2024-03-01] MEDS: LORazepam 0.5 MG TABLET PO ×2 (06:12→17:49)
[2024-03-01] MEDS: methADONE HCl 20 MG/2 ML ORAL.CONC 70 MG PO (08:07)
[2024-03-01 08:34] VITALS: BP 116/79; PULSE 89; RESP 16; TEMP 36.9; O2SAT 99
[2024-03-01] MEDS: ARIPiprazole 10 MG TABLET PO (08:35)
[2024-03-01] MEDS: OXcarbazepine 300 MG TABLET PO ×2 (08:35→20:35)
[2024-03-01] MEDS: Sertraline HCL 50 MG TABLET PO (08:35)
[2024-03-01] MEDS: Pseudoephedrine HCL 30 MG TABLET PO ×2 (08:40→20:35)
--- NOTE | 2024-03-01 10:19 | HO.PSYCHPN ---
Subjective Subjective Date of Service: 03/01/24 Reason For Visit: SI Subjective Notes: Conditional Voluntary Interim History: Active on unit. social with select peers. not attending groups. pt reports feeling anxious d/t not knowing where I'm going to go after here ; discussed going to skilled nursing if not able to obtain respite bed. focused on discharge. denies SI/HI/VH/AH. She reports sleeping well at night. Plan for discharge this week. Medication Compliance: Yes Side effects from medications: No Attending Groups: No Mental Status Exam Mental Status Exam Narrative: Pt is alert and oriented; behavior is cooperative, calm; dressed in casual attire; mood is described as anxious ; eye contact appropriate; Speech is normal rate, volume and not pressured; thought process is organized and goal directed; Thought content is on tx; denies SI/HI/VH/AH. Diagnostics Vital Signs (24Hr): Vital Signs - 24 hr 02/29/24 19:59 03/01/24 08:34 Temperature 98.5 F 98.5 F Pulse Rate 75 89 Respiratory Rate 16 16 Blood Pressure 122/68 116/79 Pulse Oximetry 98 99 Oxygen Delivery Method Room Air Room Air BMI result Body Mass Index 20.4 Labs 02/20/24 23:02 02/20/24 23:02 Medications Medications Current Medications Acetaminophen (Acetaminophen 325 Mg Tablet) 650 mg PO Q6H PRN PRN Reason: Headache/Pain Mild Scale (1-3) Last Admin: 02/26/24 19:23 Dose: 650 mg Al Hydroxide/Mg Hydroxide (Magnesium Hydrox/Alum Hydrox 30 Ml Oral.Susp) 30 ml PO Q6H PRN PRN Reason: Heartburn/Nausea Aripiprazole (Aripiprazole 10 Mg Tablet) 10 mg PO DAILY [facility] Last Admin: 03/01/24 08:35 Dose: 10 mg Fluticasone Propionate (Fluticasone Propionate Nasal 16 Gm [place]) 2 spray NOSTRIL-B DAILY [facility] Last Admin: 03/01/24 08:37 Dose: Not Given Hydroxyzine HCl (Hydroxyzine Hcl 50 Mg Tablet) 50 mg PO Q6H PRN PRN Reason: Anxiety Last Admin: 03/01/24 06:12 Dose: 50 mg Lorazepam (Lorazepam 0.5 Mg Tablet) 0.5 mg PO Q8H PRN PRN Reason: Anxiety Last Admin: 03/01/24 06:12 Dose: 0.5 mg Magnesium Hydroxide (Milk Of Magnesia 30 Ml Oral.Susp) 30 ml PO DAILY PRN PRN Reason: Constipation Last Admin: 02/27/24 20:32 Dose: 30 ml Melatonin (Melatonin 3 Mg Tablet) 6 mg PO BEDTIME [facility] Last Admin: 02/29/24 20:03 Dose: 6 mg Methadone HCl (Methadone Hcl 20 Mg/2 Ml Oral.Conc) 70 mg PO DAILY [facility] Last Admin: 03/01/24 08:07 Dose: 70 mg Mirtazapine (Mirtazapine 30 Mg Tablet) 30 mg PO BEDTIME [facility] Last Admin: 02/29/24 20:04 Dose: 30 mg Multi-Ingred Cream/Lotion/Oil/Oint (Mineral Oil/Petrolatum,White 106 Gm [place]) 1 appl TOPICAL BEDTIME [facility]; Protocol Last Admin: 02/29/24 20:04 Dose: 1 appl Ondansetron HCl (Ondansetron Odt 4 Mg Tab.Rapdis) 4 mg TRANSLINGU Q6H PRN PRN Reason: Nausea and Vomiting Last Admin: 02/25/24 13:15 Dose: 4 mg Oxcarbazepine (Oxcarbazepine 300 Mg Tablet) 300 mg PO BID [facility] Last Admin: 03/01/24 08:35 Dose: 300 mg Pseudoephedrine HCl (Pseudoephedrine Hcl 30 Mg Tablet) 30 mg PO Q6H PRN PRN Reason: Ear Fullness/Congestion Stop: 03/02/24 15:17 Last Admin: 03/01/24 08:40 Dose: 30 mg Quetiapine Fumarate (Quetiapine Fumarate 50 Mg Tablet) 50 mg PO Q4H PRN PRN Reason: Anxiety Last Admin: 02/29/24 12:52 Dose: 50 mg Sertraline HCl (Sertraline Hcl 50 Mg Tablet) 50 mg PO DAILY [facility] Last Admin: 03/01/24 08:35 Dose: 50 mg Trazodone HCl (Trazodone Hcl 50 Mg Tablet) 50 mg PO BEDTIME PRN PRN Reason: Insomnia Allergies Allergies Allergy/AdvReac Type Severity Reaction Status Date / Time No Known Allergies Allergy Verified 02/20/24 22:11 Assessment & Plan Assessment & Plan (1) Bipolar disorder: Status: Acute Code(s): F31.9 - Bipolar disorder, unspecified (2) Homeless single person: Status: Acute Code(s): Z59.00 - Homelessness unspecified (3) Opioid use disorder: Status: Acute Code(s): F11.90 - Opioid use, unspecified, uncomplicated (4) Cocaine use disorder: Status: Acute Code(s): F14.10 - Cocaine abuse, uncomplicated Plan 02/23: supportive care through cocaine withdrawal. continue methadone maintenance; otherwise supportive care through any fentanyl withdrawal. DC caplyta as not obtainable. increase abilify to 5 mg daily. otherwise continue outpt regimen. 02/24: much improved from yesterday, less pressured, more organized, not focused on delusional material. c/o scratching sound in her ears and clear drainage B/L, asking for otoscopic eval. will request hospitalist consult. otherwise continue current mgmt, will attempt to convince pt to increase abilify dosing. 02/25: remains much improved from admission, and also not supportive of increase in medications. does not want to return to [place], aware little option other than skilled nursing for discharge. does not seem to have a discharge plan. requested letter of hospitalization be sent to [place] [facility]. 02/26: appreciate hospitalist eval and recs. pt remains focused on that issue. agreeable to increase abilify tomorrow morning to 10 mg daily for racing thoughts. otherwise continue current mgmt. no discharge plans, team considering friday discharge. 02/27 keep same treatment 02/28 keep same treatment. 03/01: Active on unit. social with select peers. not attending groups. pt reports feeling anxious d/t not knowing where I'm going to go after here ; discussed going to skilled nursing if not able to obtain respite bed. focused on discharge. denies SI/HI/VH/AH. She reports sleeping well at night. Plan for discharge this week. Patient educated on: diagnosis, medication risk/benefits and therapeutic strategies Reason for continued inpatient stay Substantial Risk for: med/psych decompensation Time Spent With Patient Time: Total time managing care of this patient today _20___ minutes.
[2024-03-01] MEDS: QUEtiapine Fumarate 50 MG TABLET PO ×2 (13:27→17:49)
[2024-03-01 20:28] VITALS: BP 134/75; PULSE 80; RESP 18; TEMP 36.9; O2SAT 96
[2024-03-01] MEDS: Melatonin 3 MG TABLET 6 MG PO (20:34)
[2024-03-01] MEDS: Mirtazapine 30 MG TABLET PO (20:35)
[2024-03-02] MEDS: LORazepam 0.5 MG TABLET PO ×2 (07:24→18:53)
[2024-03-02 07:48] VITALS: BP 142/70; PULSE 86; RESP 16; TEMP 37.1; O2SAT 96
[2024-03-02] MEDS: methADONE HCl 20 MG/2 ML ORAL.CONC 70 MG PO (08:03)
[2024-03-02] MEDS: Sertraline HCL 50 MG TABLET PO (08:29)
[2024-03-02] MEDS: ARIPiprazole 10 MG TABLET PO (08:29)
[2024-03-02] MEDS: OXcarbazepine 300 MG TABLET PO ×2 (08:29→20:14)
[2024-03-02] MEDS: Pseudoephedrine HCL 30 MG TABLET PO (08:34)
[2024-03-02] MEDS: hydrOXYzine HCL 50 MG TABLET PO ×2 (08:34→20:15)
--- NOTE | 2024-03-02 11:26 | P.PNPSI_ITS ---
Subjective Subjective Date of Service: 03/02/24 Reason For Visit: SI Subjective Notes: Conditional Voluntary Interim History: pt continues to report feeling alright but anxious d/t not knowing where I'm going ; pt awaiting to see if she is able to obtain respite bed. denies SI/HI/VH/AH. denies any other issues at this time. plan for discharge . Medication Compliance: Yes Side effects from medications: No Attending Groups: No Review of Systems Constitutional: Reports as per HPI Eyes: Reports as per HPI Reports as per HPI Cardiovascular: Reports as per HPI Respiratory: Reports as per HPI Gastrointestinal: Reports as per HPI Genitourinary: Reports as per HPI Musculoskeletal: Reports as per HPI Skin/Breast: Reports as per HPI Reports as per HPI Psychiatric: Reports as per HPI Endocrine: Reports as per HPI Hematologic/Lymphatic: Reports as per HPI Allergic/Immunologic: Reports as per HPI Mental Status Exam Mental Status Exam Narrative: Pt is alert and oriented; behavior is cooperative, calm; dressed in casual attire; mood is described as alright ; eye contact appropriate; Speech is normal rate, volume and not pressured; thought process is organized and goal directed; Thought content is on discharge; denies SI/HI/VH/AH. Diagnostics Vital Signs (24Hr): Vital Signs - 24 hr 03/01/24 20:28 03/02/24 07:48 Temperature 98.4 F 98.7 F Pulse Rate 80 86 Respiratory Rate 18 16 Blood Pressure 134/75 142/70 H Pulse Oximetry 96 96 Oxygen Delivery Method Room Air Room Air BMI result Body Mass Index 20.4 Labs 02/20/24 23:02 02/20/24 23:02 Medications Medications Current Medications Acetaminophen (Acetaminophen 325 Mg Tablet) 650 mg PO Q6H PRN PRN Reason: Headache/Pain Mild Scale (1-3) Last Admin: 02/26/24 19:23 Dose: 650 mg Al Hydroxide/Mg Hydroxide (Magnesium Hydrox/Alum Hydrox 30 Ml Oral.Susp) 30 ml PO Q6H PRN PRN Reason: Heartburn/Nausea Aripiprazole (Aripiprazole 10 Mg Tablet) 10 mg PO DAILY [facility] Last Admin: 03/02/24 08:29 Dose: 10 mg Fluticasone Propionate (Fluticasone Propionate Nasal 16 Gm [place]) 2 spray NOSTRIL-B DAILY [facility] Last Admin: 03/02/24 09:52 Dose: Not Given Hydroxyzine HCl (Hydroxyzine Hcl 50 Mg Tablet) 50 mg PO Q6H PRN PRN Reason: Anxiety Last Admin: 03/02/24 08:34 Dose: 50 mg Lorazepam (Lorazepam 0.5 Mg Tablet) 0.5 mg PO Q8H PRN PRN Reason: Anxiety Last Admin: 03/02/24 07:24 Dose: 0.5 mg Magnesium Hydroxide (Milk Of Magnesia 30 Ml Oral.Susp) 30 ml PO DAILY PRN PRN Reason: Constipation Last Admin: 02/27/24 20:32 Dose: 30 ml Melatonin (Melatonin 3 Mg Tablet) 6 mg PO BEDTIME [facility] Last Admin: 03/01/24 20:34 Dose: 6 mg Methadone HCl (Methadone Hcl 20 Mg/2 Ml Oral.Conc) 70 mg PO DAILY [facility] Last Admin: 03/02/24 08:03 Dose: 70 mg Mirtazapine (Mirtazapine 30 Mg Tablet) 30 mg PO BEDTIME [facility] Last Admin: 03/01/24 20:35 Dose: 30 mg Multi-Ingred Cream/Lotion/Oil/Oint (Mineral Oil/Petrolatum,White 106 Gm [place]) 1 appl TOPICAL BEDTIME [facility]; Protocol Last Admin: 03/01/24 21:02 Dose: Not Given Ondansetron HCl (Ondansetron Odt 4 Mg Tab.Rapdis) 4 mg TRANSLINGU Q6H PRN PRN Reason: Nausea and Vomiting Last Admin: 02/25/24 13:15 Dose: 4 mg Oxcarbazepine (Oxcarbazepine 300 Mg Tablet) 300 mg PO BID [facility] Last Admin: 03/02/24 08:29 Dose: 300 mg Pseudoephedrine HCl (Pseudoephedrine Hcl 30 Mg Tablet) 30 mg PO Q6H PRN PRN Reason: Ear Fullness/Congestion Stop: 03/02/24 15:17 Last Admin: 03/02/24 08:34 Dose: 30 mg Quetiapine Fumarate (Quetiapine Fumarate 50 Mg Tablet) 50 mg PO Q4H PRN PRN Reason: Anxiety Last Admin: 03/01/24 17:49 Dose: 50 mg Sertraline HCl (Sertraline Hcl 50 Mg Tablet) 50 mg PO DAILY [facility] Last Admin: 03/02/24 08:29 Dose: 50 mg Trazodone HCl (Trazodone Hcl 50 Mg Tablet) 50 mg PO BEDTIME PRN PRN Reason: Insomnia Allergies Allergies Allergy/AdvReac Type Severity Reaction Status Date / Time No Known Allergies Allergy Verified 02/20/24 22:11 Assessment & Plan Assessment & Plan (1) Bipolar disorder: Status: Acute Code(s): F31.9 - Bipolar disorder, unspecified (2) Homeless single person: Status: Acute Code(s): Z59.00 - Homelessness unspecified (3) Opioid use disorder: Status: Acute Code(s): F11.90 - Opioid use, unspecified, uncomplicated (4) Cocaine use disorder: Status: Acute Code(s): F14.10 - Cocaine abuse, uncomplicated Plan 02/23: supportive care through cocaine withdrawal. continue methadone maintenance; otherwise supportive care through any fentanyl withdrawal. DC caplyta as not obtainable. increase abilify to 5 mg daily. otherwise continue outpt regimen. 02/24: much improved from yesterday, less pressured, more organized, not focused on delusional material. c/o scratching sound in her ears and clear drainage B/L, asking for otoscopic eval. will request hospitalist consult. otherwise continue current mgmt, will attempt to convince pt to increase abilify dosing. 02/25: remains much improved from admission, and also not supportive of increase in medications. does not want to return to [place], aware little option other than skilled nursing for discharge. does not seem to have a discharge plan. requested letter of hospitalization be sent to [place] [facility]. 02/26: appreciate hospitalist eval and recs. pt remains focused on that issue. agreeable to increase abilify tomorrow morning to 10 mg daily for racing thoughts. otherwise continue current mgmt. no discharge plans, team considering friday discharge. 02/27 keep same treatment 02/28 keep same treatment. 03/01: Active on unit. social with select peers. not attending groups. pt reports feeling anxious d/t not knowing where I'm going to go after here ; discussed going to skilled nursing if not able to obtain respite bed. focused on discharge. denies SI/HI/VH/AH. She reports sleeping well at night. Plan for discharge this week. 03/02: pt continues to report feeling alright but anxious d/t not knowing where I'm going ; pt awaiting to see if she is able to obtain respite bed. denies SI/HI/VH/AH. denies any other issues at this time. plan for discharge . Continue current tx plan. Patient educated on: diagnosis, medication risk/benefits and therapeutic strategies Reason for continued inpatient stay Substantial Risk for: med/psych decompensation Time Spent With Patient Time: Total time managing care of this patient today _20___ minutes.
[2024-03-02] MEDS: QUEtiapine Fumarate 50 MG TABLET PO (13:25)
[2024-03-02 20:00] VITALS: BP 145/81; PULSE 82; RESP 16; TEMP 36.9; O2SAT 96
[2024-03-02] MEDS: Melatonin 3 MG TABLET 6 MG PO (20:14)
[2024-03-02] MEDS: Mirtazapine 30 MG TABLET PO (20:15)
[2024-03-03] MEDS: LORazepam 0.5 MG TABLET PO ×2 (06:47→15:19)
[2024-03-03 07:10] VITALS: BP 122/61; PULSE 78; RESP 16; TEMP 36.8; O2SAT 97
[2024-03-03] MEDS: methADONE HCl 20 MG/2 ML ORAL.CONC 70 MG PO (07:58)
[2024-03-03] MEDS: Sertraline HCL 50 MG TABLET PO (08:17)
[2024-03-03] MEDS: OXcarbazepine 300 MG TABLET PO ×2 (08:17→20:12)
[2024-03-03] MEDS: ARIPiprazole 10 MG TABLET PO (08:17)
[2024-03-03] MEDS: hydrOXYzine HCL 50 MG TABLET PO ×2 (12:33→20:12)
--- NOTE | 2024-03-03 12:41 | HO.PSYCHPN ---
Subjective Subjective Date of Service: 03/03/24 Reason For Visit: SI Subjective Notes: Conditional Voluntary Interim History: Patient reports feeling good today; pt stated, I'm just going to go to my moms tomorrow . denies SI/HI/VH/AH. denies any issues at this time. per social media campaign managerDian, pt's father plans on picking up patient and bringing her to her mothers. Patient reports she plans on following up with her outpatient providers. Medication Compliance: Yes Side effects from medications: No Attending Groups: No Review of Systems Constitutional: Reports as per HPI Eyes: Reports as per HPI Reports as per HPI Cardiovascular: Reports as per HPI Respiratory: Reports as per HPI Gastrointestinal: Reports as per HPI Musculoskeletal: Reports as per HPI Skin/Breast: Reports as per HPI Reports as per HPI Psychiatric: Reports as per HPI Endocrine: Reports as per HPI Hematologic/Lymphatic: Reports as per HPI Allergic/Immunologic: Reports as per HPI Mental Status Exam Mental Status Exam Narrative: Pt is alert and oriented; behavior is cooperative, calm; dressed in casual attire; mood is described as good ; eye contact appropriate; Speech is normal rate, volume and not pressured; thought process is organized and goal directed; Thought content is on discharge; denies SI/HI/VH/AH. Diagnostics Vital Signs (24Hr): Vital Signs - 24 hr 03/02/24 20:00 03/03/24 07:10 Temperature 98.5 F 98.2 F Pulse Rate 82 78 Respiratory Rate 16 16 Blood Pressure 145/81 H 122/61 Pulse Oximetry 96 97 Oxygen Delivery Method Room Air Room Air BMI result Body Mass Index 20.4 Labs 02/20/24 23:02 02/20/24 23:02 Medications Medications Current Medications Acetaminophen (Acetaminophen 325 Mg Tablet) 650 mg PO Q6H PRN PRN Reason: Headache/Pain Mild Scale (1-3) Last Admin: 02/26/24 19:23 Dose: 650 mg Al Hydroxide/Mg Hydroxide (Magnesium Hydrox/Alum Hydrox 30 Ml Oral.Susp) 30 ml PO Q6H PRN PRN Reason: Heartburn/Nausea Aripiprazole (Aripiprazole 10 Mg Tablet) 10 mg PO DAILY [facility] Last Admin: 03/03/24 08:17 Dose: 10 mg Fluticasone Propionate (Fluticasone Propionate Nasal 16 Gm [place]) 2 spray NOSTRIL-B DAILY [facility] Last Admin: 03/03/24 08:23 Dose: Not Given Hydroxyzine HCl (Hydroxyzine Hcl 50 Mg Tablet) 50 mg PO Q6H PRN PRN Reason: Anxiety Last Admin: 03/03/24 12:33 Dose: 50 mg Lorazepam (Lorazepam 0.5 Mg Tablet) 0.5 mg PO Q8H PRN PRN Reason: Anxiety Last Admin: 03/03/24 06:47 Dose: 0.5 mg Magnesium Hydroxide (Milk Of Magnesia 30 Ml Oral.Susp) 30 ml PO DAILY PRN PRN Reason: Constipation Last Admin: 02/27/24 20:32 Dose: 30 ml Melatonin (Melatonin 3 Mg Tablet) 6 mg PO BEDTIME [facility] Last Admin: 03/02/24 20:14 Dose: 6 mg Methadone HCl (Methadone Hcl 20 Mg/2 Ml Oral.Conc) 70 mg PO DAILY [facility] Last Admin: 03/03/24 07:58 Dose: 70 mg Mirtazapine (Mirtazapine 30 Mg Tablet) 30 mg PO BEDTIME [facility] Last Admin: 03/02/24 20:15 Dose: 30 mg Multi-Ingred Cream/Lotion/Oil/Oint (Mineral Oil/Petrolatum,White 106 Gm Tube) 1 appl TOPICAL BEDTIME [facility]ONY; Protocol Last Admin: 03/02/24 20:17 Dose: Not Given Ondansetron HCl (Ondansetron Odt 4 Mg Tab.Rapdis) 4 mg TRANSLINGU Q6H PRN PRN Reason: Nausea and Vomiting Last Admin: 02/25/24 13:15 Dose: 4 mg Oxcarbazepine (Oxcarbazepine 300 Mg Tablet) 300 mg PO BID [facility] Last Admin: 03/03/24 08:17 Dose: 300 mg Quetiapine Fumarate (Quetiapine Fumarate 50 Mg Tablet) 50 mg PO Q4H PRN PRN Reason: Anxiety Last Admin: 03/02/24 13:25 Dose: 50 mg Sertraline HCl (Sertraline Hcl 50 Mg Tablet) 50 mg PO DAILY [facility] Last Admin: 03/03/24 08:17 Dose: 50 mg Trazodone HCl (Trazodone Hcl 50 Mg Tablet) 50 mg PO BEDTIME PRN PRN Reason: Insomnia Allergies Allergies Allergy/AdvReac Type Severity Reaction Status Date / Time No Known Allergies Allergy Verified 02/20/24 22:11 Assessment & Plan Assessment & Plan (1) Bipolar disorder: Status: Acute Code(s): F31.9 - Bipolar disorder, unspecified (2) Homeless single person: Status: Acute Code(s): Z59.00 - Homelessness unspecified (3) Opioid use disorder: Status: Acute Code(s): F11.90 - Opioid use, unspecified, uncomplicated (4) Cocaine use disorder: Status: Acute Code(s): F14.10 - Cocaine abuse, uncomplicated Plan 02/23: supportive care through cocaine withdrawal. continue methadone maintenance; otherwise supportive care through any fentanyl withdrawal. DC caplyta as not obtainable. increase abilify to 5 mg daily. otherwise continue outpt regimen. 02/24: much improved from yesterday, less pressured, more organized, not focused on delusional material. c/o scratching sound in her ears and clear drainage B/L, asking for otoscopic eval. will request hospitalist consult. otherwise continue current mgmt, will attempt to convince pt to increase abilify dosing. 02/25: remains much improved from admission, and also not supportive of increase in medications. does not want to return to [place], aware little option other than nursing home for discharge. does not seem to have a discharge plan. requested letter of hospitalization be sent to [place] [facility]. 02/26: appreciate hospitalist eval and recs. pt remains focused on that issue. agreeable to increase abilify tomorrow morning to 10 mg daily for racing thoughts. otherwise continue current mgmt. no discharge plans, team considering friday discharge. 02/27 keep same treatment 02/28 keep same treatment. 03/01: Active on unit. social with select peers. not attending groups. pt reports feeling anxious d/t not knowing where I'm going to go after here ; discussed going to nursing home if not able to obtain respite bed. focused on discharge. denies SI/HI/VH/AH. She reports sleeping well at night. Plan for discharge this week. 03/02: pt continues to report feeling alright but anxious d/t not knowing where I'm going ; pt awaiting to see if she is able to obtain respite bed. denies SI/HI/VH/AH. denies any other issues at this time. plan for discharge . Continue current tx plan. 03/03: Patient reports feeling good today; pt stated, I'm just going to go to my moms tomorrow . denies SI/HI/VH/AH. denies any issues at this time. per social media campaign manager, Dian, pt's father plans on picking up patient and bringing her to her mothers. Patient reports she plans on following up with her outpatient providers. Patient educated on: diagnosis, medication risk/benefits and therapeutic strategies Reason for continued inpatient stay Substantial Risk for: stable for discharge Time Spent With Patient Time: Total time managing care of this patient today __20__ minutes.
[2024-03-03] MEDS: QUEtiapine Fumarate 50 MG TABLET PO (14:18)
[2024-03-03 20:00] VITALS: BP 130/79; PULSE 82; RESP 16; TEMP 36.8; O2SAT 98
[2024-03-03] MEDS: Mineral Oil/Petrolatum,White 106 GM Tube 1 APPL TOPICAL (20:11)
[2024-03-03] MEDS: Melatonin 3 MG TABLET 6 MG PO (20:12)
[2024-03-03] MEDS: Mirtazapine 30 MG TABLET PO (20:12)
[2024-03-04] MEDS: LORazepam 0.5 MG TABLET PO (06:23)
[2024-03-04 07:20] VITALS: BP 115/60; PULSE 67; RESP 16; TEMP 37.1; O2SAT 97
[2024-03-04] MEDS: OXcarbazepine 300 MG TABLET PO (08:05)
[2024-03-04] MEDS: Sertraline HCL 50 MG TABLET PO (08:05)
[2024-03-04] MEDS: ARIPiprazole 10 MG TABLET PO (08:05)
[2024-03-04] MEDS: methADONE HCl 20 MG/2 ML ORAL.CONC 70 MG PO (08:12)
[2024-03-04] MEDS: hydrOXYzine HCL 50 MG TABLET PO (08:16)
[2024-03-04] MEDS: Naloxone HCl Nasal TAKE HOME 4 MG SPRAY 8 MG NOSTRILALT (08:17)
[2024-03-04 09:13] VITALS: BMI 21.6
--- NOTE | 2024-03-04 11:03 | PM.PSYDC ---
DS: Providers Provider Date of Service: 03/04/24 Date of admission: 02/23/24 12:27 Date of discharge: 03/04/24 Primary care physician: Unknown Physician Attending physician on admission: Jarred Huff Consults: 02/26/24 08:00 Consult to Hospitalist Routine Comment: also B/L clear drainage from ears. req richard eval. Consulting Provider: [facility] Hospitalists Reason For Exam: c/o B/L [id number] shawna sound in her ears Attending physician on discharge: Mic Morse Discharging clinician: Ariela Cintron DS: Diagnosis Discharge Diagnosis (1) Bipolar disorder: Status: Acute (2) Homeless single person: Status: Acute (3) Opioid use disorder: Status: Acute (4) Cocaine use disorder: Status: Acute DS: Medications Discharge Medications Home Medications: Home Medications ?Medication ?Instructions ?Recorded ?Confirmed lumateperone 42 mg capsule 42 mg PO DAILY 02/14/24 02/21/24 (Caplyta) methadone 10 mg/mL oral concentrate 70 mg PO DAILY 02/22/24 02/22/24 Previous Rx's ?Medication ?Instructions ?Recorded aripiprazole 10 mg tablet 10 mg PO DAILY 30 days #30 tabs 03/03/24 hydroxyzine HCl 50 mg tablet 50 mg PO TID PRN Anxiety 30 days 03/03/24 #90 tabs lorazepam 0.5 mg tablet 0.5 mg PO Q8H PRN Anxiety 7 days 03/03/24 #21 tabs melatonin 5 mg tablet 5 mg PO BEDTIME PRN sleep 30 days 03/03/24 #30 tabs mirtazapine 30 mg tablet 30 mg PO BEDTIME 30 days #30 tabs 03/03/24 oxcarbazepine 300 mg tablet 300 mg PO BID 30 days #60 tabs 03/03/24 quetiapine 50 mg tablet 50 mg PO TID PRN Anxiety 30 days 03/03/24 #90 tabs sertraline 50 mg tablet 50 mg PO DAILY 30 days #30 tabs 03/03/24 trazodone 50 mg tablet 50 mg PO BEDTIME PRN Insomnia 30 03/03/24 days #30 tabs Mental Status Exam Mental Status Exam Narrative: Pt is alert and oriented; behavior is cooperative, calm; dressed in casual attire; mood is described as good ; eye contact appropriate; Speech is normal rate, volume and not pressured; thought process is organized and goal directed; Thought content is on discharge; denies SI/HI/VH/AH. DS: Summary Hospital Course Hospital Course: per CARE team darryl, pt self-presented with c/o feeling unwell and unsafe after having missed her methadone dosing appointment. she reported she had recently been at [facility] and would like to go back. utox POS for methadone, fentanyl, cocaine, and benzos. pt had been discharged from a 3-day stay on on 02/18. she was arrested for shoplifting on 02/19 and spent the day in assisted. she presented to [facility] ED later in the day on 02/19. CARE team described pt as labile, pressured, paranoid, delusional, tangential. she discussed her involvement with gangsters and [employer] gangs. on interview with MD, presentation consistent with that as observed by the CARE team. on being asked how she could be helped in the hospital, she stated she needed a safe place to go, services, and money. she expressed some paranoid delusions, such as that she has something in my head and everyone everywhere can hear it. she also noted, perhaps with some grandiosity, i'm cool in the government, suggesting she is at some elevated status within the federal government. redirection was difficult, but possible. pt agreed to DC caplyta as it is non-formulary and generally requires a PA. she agreed to increase her abilify from 2 mg daily to 5 mg daily and to otherwise continue her usual outpt medications regimen. she generally considers herself without mental illness, and convincing her to take medication was difficult. Past Psychiatric History: Very poor historian. Does not have medications ordered prescriber in a number of years. Reports current regiment is through provider at [facility]. Last inpatient episode was a few years ago which was in the context of cutting self. Has a history of overdosing and cutting self, but last time was a few years ago. Reports diagnosis of bipolar disorder and describes episodes of at least hypomania. Unclear correlation with substance use. Currently on methadone maintenance 70 mg and finds this very helpful. supportive care through cocaine withdrawal. continue methadone maintenance; otherwise supportive care through any fentanyl withdrawal. DC caplyta as not obtainable. increase abilify to 5 mg daily. otherwise continue outpt regimen. much improved from yesterday, less pressured, more organized, not focused on delusional material. c/o scratching sound in her ears and clear drainage B/L, asking for otoscopic eval. will request hospitalist consult. otherwise continue current mgmt, will attempt to convince pt to increase abilify dosing. remains much improved from admission, and also not supportive of increase in medications. does not want to return to [place], aware little option other than prison for discharge. does not seem to have a discharge plan. requested letter of hospitalization be sent to [place] [facility]. appreciate hospitalist eval and recs. pt remains focused on that issue. agreeable to increase abilify tomorrow morning to 10 mg daily for racing thoughts. otherwise continue current mgmt. no discharge plans, team considering friday discharge. Active on unit. social with select peers. not attending groups. pt reports feeling anxious d/t not knowing where I'm going to go after here ; discussed going to prison if not able to obtain respite bed. focused on discharge. denies SI/HI/VH/AH. She reports sleeping well at night. Plan for discharge this week. pt continues to report feeling alright but anxious d/t not knowing where I'm going ; pt awaiting to see if she is able to obtain respite bed. denies SI/HI/VH/AH. denies any other issues at this time. plan for discharge . Continue current tx plan. Patient reports feeling good today; pt stated, I'm just going to go to my moms tomorrow . denies SI/HI/VH/AH. denies any issues at this time. per social studies teacherDian, pt's father plans on picking up patient and bringing her to her mothers. Patient reports she plans on following up with her outpatient providers. Patient reports feeling ready to go ; pt stated, I'm either going to go to a prison or maybe to another ER to see if they can help me with placement . pt reports she plans on following up with her outpatient providers. denies SI/HI/VH/AH. Status at Discharge Cognitive/behavioral status at discharge: Patient has insight and demonstrates good judgment in terms of wanting to pursue treatment. Patient has a safety plan that includes presenting to the closest ER or calling 911 if feeling unsafe. Functional status at discharge: independent ambulation Overall status at discharge: patient is back to baseline Time Spent with Patient Time attestation: Total time managing care of this patient today _20___ minutes. Time spent: Less than 30 minutes Discharge Plan Discharge Anticipated Discharge Date/Time: 03/04/24 11:50 Patient Disposition: Home, Self-Care Discharge Diagnosis: Bipolar d/o, opioid use d/o, cocaine use d/o Referrals: [facility] [Other] - 1 Week (*You have been referred to the [facility]. Please follow up for possible placement. ) [facility] [Other] - 1 Week (*You have been referred to the [facility] program. Please follow up for possible placement. ) [facility] [Other] - 1 Week (*You have been referred to [facility]. Please follow up regarding possible placement. ) [facility] [Other] - 1 Week (*Please reach out to the program daily to check in about bed availability. ) [facility] [Provider Group] - 1 Week (Please contact your primary care physician to schedule a follow up appt within 7-10 days of discharge.) Discharge Medications: New aripiprazole 10 mg Tablet 10 mg PO DAILY 30 Days Qty: 30 0RF lorazepam 0.5 mg Tablet 0.5 mg PO Q8H PRN (Reason: Anxiety) 7 Days Qty: 21 0RF Continued Caplyta 42 mg capsule 42 mg PO DAILY methadone 10 mg/mL Concentrate 70 mg PO DAILY trazodone 50 mg Tablet 50 mg PO BEDTIME PRN (Reason: Insomnia) 30 Days Qty: 30 0RF oxcarbazepine 300 mg tablet 300 mg PO BID 30 Days Qty: 60 0RF mirtazapine 30 mg tablet 30 mg PO BEDTIME 30 Days Qty: 30 0RF sertraline 50 mg tablet 50 mg PO DAILY 30 Days Qty: 30 0RF Changed hydroxyzine HCl 50 mg tablet 50 mg PO TID PRN (Reason: Anxiety) 30 Days Qty: 90 0RF quetiapine 50 mg Tablet 50 mg PO TID PRN (Reason: Anxiety) 30 Days Qty: 90 0RF melatonin 5 mg tablet 5 mg PO BEDTIME PRN (Reason: sleep) 30 Days Qty: 30 0RF Discontinued lorazepam [Ativan] 1 mg Tablet 1 mg PO Q8H PRN (Reason: Anxiety) aripiprazole 2 mg tablet 2 mg PO DAILY Discharge Orders: Discharge Order (Routine); Ordered 03/04/24 Ordered By: Ariela Cintron Diet: Regular diet Activity on Discharge: As tolerated Stand Alone Forms: Patient Portal Discharge page, Community Support Print Language: Luxembourgish Care Plan Goals: Maintain mood and safe behaviors Take medications as prescribed Continue to pursue sobriety Practice coping skills Continue with outpatient providers and reach out to them as needed Health Concerns: Mood stability and behaviors Sobriety Plan of Treatment: Follow up with your PCP, psychiatric provider and other outpatient providers regarding above concerns Take medications as prescribed Assessment: Patient has insight and demonstrates good judgment in terms of wanting to pursue treatment. Patient has a safety plan that includes presenting to the closest ER or calling 911 if feeling unsafe. Discharge Date/Time: 03/04/24 12:30
== END 2024-03-04 12:30 | disposition home or self-care (01) | DRG 753 ==
LOC: HO.ED 23:09 → HO.PADLT16 02-23 12:53
PROVIDERS: Admitting Provider Psychiatry & Neurology Psychiatry; Emergency Provider Emergency Medicine; Responsible Provider Registered Nurse; Visit Provider Psychiatry & Neurology Psychiatry
DX: F31.9 Bipolar disorder, unspecified (principal); F11.23 Opioid dependence with withdrawal; F19.90 Other psychoactive substance use, unspecified, uncomplicated; F14.13 Cocaine abuse, unspecified with withdrawal; T40.3X6A Underdosing of methadone, initial encounter; Z71.51 Drug abuse counseling and surveillance of drug abuser; Z59.02 Unsheltered homelessness; Z79.899 Other long term (current) drug therapy
CPT/HCPCS: 36415; 80048; 80076; 80307; 81003; 83735; 84702; 85025; 93005; 99285; S9485

== ENCOUNTER → 2024-02-23 08:21 | Outpatient (BNV) | payer OTHER, SELFPAY | PROVIDERS: Admitting Provider Psychiatry & Neurology Psychiatry; Emergency Provider Emergency Medicine; Visit Provider Internal Medicine Cardiovascular Disease | DX: I45.81 Long QT syndrome (principal) | CPT/HCPCS: 93010 ==

== ENCOUNTER → 2024-02-23 12:27 | Outpatient (BNV) | payer OTHER, SELFPAY | PROVIDERS: Admitting Provider Psychiatry & Neurology Psychiatry; Emergency Provider Emergency Medicine; Visit Provider Psychiatry & Neurology Psychiatry | DX: F31.5 Bipolar disorder, current episode depressed, severe, with psychotic features (principal); F14.10 Cocaine abuse, uncomplicated; F11.90 Opioid use, unspecified, uncomplicated; Z59.00 Homelessness unspecified | CPT/HCPCS: 99231; 99232; 99233 ==